=== PATIENT | female | born 1955 | race Caucasian/White ===

== ENCOUNTER 2023-01-29 08:30 | Day surgery (SDC) | payer MEDICARE, SELFPAY ==
[2023-01-27 11:16] VITALS: BMI 25.6
--- NOTE | 2023-01-28 08:25 | HO.ANESPROP2 ---
Documented by User: Noa Arreola NP 01/28/23 08:25 HPI - Anesthesia Eval Consult details Narrative: 68yo F for Colonoscopy PMFSH Active Problems Active Problems: All Active Problems (Updated 12/11/21 @ 13:17 by Kishor Sousa MD) Annual physical exam (Acute) Hypercholesterolemia (Acute) Past Medical History Medical History COVID-19 virus infection Shingles Vitiligo Hypercholesterolemia Family History Family History Father Lung cancer Surgical History Surgical History (Updated 01/29/23 @ 09:36 by Mariposa Montero MD) History of total abdominal hysterectomy History of appendectomy H/O elbow surgery H/O wrist surgery Social History Social History Housing: House Alcohol intake: current Alcohol intake frequency: a few times a month Patient Tobacco Use Status: Never used Tobacco e-Cigarette/Vaping Use: Never Used Second Hand Smoke Exposure: No Use of substances other than those prescribed or required for medical reasons: No Are you DNR?: No Advance Directives: No Advance Directives Information Provided: Yes Recently lost weight without trying: No How much weight loss: 2-13 pounds Eating poorly because of decreased appetite: No Nutrition screen score: 1 Nutrition Risks: No Nutritional Risk Current occupational status: retired Cognitive needs: No Hearing needs: No Vision needs: Yes Meds Allergies Allergy/AdvReac Type Severity Reaction Status Date / Time No Known Allergies Allergy Verified 12/11/21 12:59 Home Medications Medication Instructions Recorded Confirmed Last Taken Type cholecalciferol (vitamin D3) 25 25 mcg PO DAILY 12/11/21 12/11/21 Unknown History mcg (1,000 unit) capsule Exam Exam Date and Time: January 28, 2023 0825 Height,Weight and Vital Signs: Height 5 ft 4.5 in Weight 68.765 kg Assessment and Plan Assessment Anesthesia Assessment: Chart Reviewed Documented by User: Mariposa Montero MD 01/29/23 09:38 PMFSH Active Problems Active Problems: All Active Problems (Updated 01/29/23 @ 09:30 by Mariposa Montero MD) Annual physical exam (Acute) Hypercholesterolemia (Acute)- No medication Vit D3 only in the winter 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 Limited extension Past Medical History Medical History COVID-19 virus infection Shingles Vitiligo Hypercholesterolemia Family History Family History Father Lung cancer Family history of problems with anesthesia: No Surgical History Surgical History (Updated 01/29/23 @ 09:36 by Mariposa Montero MD) History of total abdominal hysterectomy History of appendectomy H/O elbow surgery H/O wrist surgery History of Problems with Anesthesia: No Social History Social History Housing: House Alcohol intake: current Alcohol intake frequency: a few times a month Patient Tobacco Use Status: Never used Tobacco e-Cigarette/Vaping Use: Never Used Second Hand Smoke Exposure: No Use of substances other than those prescribed or required for medical reasons: No Are you DNR?: No Advance Directives: No Advance Directives Information Provided: Yes Recently lost weight without trying: No How much weight loss: 2-13 pounds Eating poorly because of decreased appetite: No Nutrition screen score: 1 Nutrition Risks: No Nutritional Risk Current occupational status: retired Cognitive needs: No Hearing needs: No Vision needs: Yes Meds Allergies Allergy/AdvReac Type Severity Reaction Status Date / Time No Known Allergies Allergy Verified 12/11/21 12:59 Home Medications Medication Instructions Recorded Confirmed Last Taken Type cholecalciferol (vitamin D3) 25 25 mcg PO DAILY 12/11/21 12/11/21 Unknown History mcg (1,000 unit) capsule Exam Height,Weight and Vital Signs: Height 5 ft 4.5 in Weight 68.765 kg Vital Signs Temp Pulse Resp BP Pulse Ox O2 Del Method 01/29/23 09:06 98.1 F 66 20 119/65 99 Room Air Airway Mallampati Class: II TM Dist: >3cm Neck ROM: Full Loose/Missing/Broken Teeth: No (Denies broken, loose, missing teeth) Heart: RRR Lungs: CTAB Assessment and Plan Assessment Anesthesia Assessment: Anesthesia Plan Discussed Final Anesthetic Review Family History of Problems with Anesthesia: No History of Problems with Anesthesia: No NPO: Yes ASA Class: II Final Preanesthetic Review: No Changes in Pt Med Stat, Meds/Allgs Chart Reviewed, Consent Obtained/Reviewed and Anes Risks/Benef Reviewed Patient Risk: Low Procedure Risk: Low Assessment/Block/Sedation in SS: Assess/Block/Sedation-SS Anesthetic Plan Anesthetic Plan: MAC: Disposition: Standard PACU
[2023-01-29 08:50] VITALS: BMI 26.2
[2023-01-29 08:53] VITALS: BMI 26.2
[2023-01-29 09:06] VITALS: BP 119/65; PULSE 66; RESP 20; TEMP 36.7; O2SAT 99
[2023-01-29] MEDS: Lactated Ringers 1,000 ML 100 ML IVCONT (09:24)
[2023-01-29 10:57] VITALS: BP 74/37; PULSE 83; RESP 16; TEMP 36.7; O2SAT 96
--- NOTE | 2023-01-29 10:58 | P.BOP_ITS ---
Brief Operative Note Date of Service: 01/29/23 Pre-op diagnosis: Screening Post-op diagnosis: other (Diverticulosis) Procedure: Colonoscopy to the cecum Surgeon: Rudi Mills MD Anesthesia: MAC Was an Senior Counsel Commercial used for this Procedure?: No Estimated blood loss (mL): 0 Pathology: none sent Condition: stable Disposition: PACU
[2023-01-29 11:02] VITALS: BP 83/41; PULSE 68; RESP 16; O2SAT 97
[2023-01-29 11:07] VITALS: BP 101/50; PULSE 72; RESP 16; O2SAT 99
[2023-01-29 11:17] VITALS: BP 106/47; PULSE 68; RESP 16; O2SAT 99
[2023-01-29 11:22] VITALS: BP 113/74; PULSE 85; RESP 16; TEMP 36.2; O2SAT 100
--- NOTE | 2023-01-29 11:59 | OP_ITS ---
DATE OF SERVICE: 01/29/2023 SURGEON: Rudi Mills MD INDICATIONS: The patient presents for evaluation of colorectal cancer screening. Full consent has been obtained from her for this, including risks of bleeding and perforation. PREOPERATIVE DIAGNOSIS: Colorectal cancer screening. POSTOPERATIVE DIAGNOSIS: Colorectal cancer screening, sigmoid diverticulosis, and internal hemorrhoids PROCEDURE PERFORMED: Colonoscopy to the cecum. ESTIMATED BLOOD LOSS: COMPLICATIONS: ANESTHESIA: Monitored anesthesia care. ASSISTANTS: SPECIMENS: DESCRIPTION OF PROCEDURE: The patient was placed in the left lateral decubitus position. The digital rectal exam revealed no abnormalities. The Olympus video pediatric colonoscope was entered into the rectum and advanced to the cecum with the assistance of abdominal pressure. Once in the cecum, I did identify normal-appearing cecal pouch with appendiceal orifice and a normal-appearing ileocecal valve. There was transillumination of the light deep in the right lower quadrant. The entire cecum and ileocecal valve appeared normal. The scope was slowly withdrawn assessing all mucosal surfaces carefully. Preparation was excellent. I did not visualize any sign of polyps, colitis, nor angiodysplasia. There was a mild amount of sigmoid diverticulosis. In the rectum, scope was retroflexed visualizing internal hemorrhoids, but no other pathology. The rectal mucosa appeared normal. The scope was straightened and withdrawn from the patient. She tolerated the procedure well and was returned to the recovery area in stable condition. IMPRESSION: 1. Sigmoid diverticulosis. 2. Internal hemorrhoids. PLAN: Given her negative exam, I would recommend a followup coloscopy in 10 years for further screening. She will otherwise see me on a p.r.n. basis. MD MAXIM Padgett/TG / [phone]
== END 2023-01-29 11:58 | disposition home or self-care (01) ==
PROVIDERS: PCP Internal Medicine; Visit Provider Internal Medicine
PROC: 0DJD8ZZ Inspection of Lower Intestinal Tract, Via Natural or Artificial Opening Endoscopic (ICD-10-PCS; CPT 45378; principal; 2023-01-29 09:30)
DX: Z12.11 Encounter for screening for malignant neoplasm of colon (principal); K57.30 Diverticulosis of large intestine without perforation or abscess without bleeding; K64.8 Other hemorrhoids; E78.00 Pure hypercholesterolemia, unspecified; Z85.830 Personal history of malignant neoplasm of bone
CPT/HCPCS: G0121; J2250

== ENCOUNTER 2024-03-05 13:48 | Outpatient (AMB) | payer MEDICARE, SELFPAY ==
--- NOTE | 2024-03-05 13:53 | A.OFFPC_ITS ---
Intake Visit Reasons: AWV Allergies No Known Allergies Allergy (Verified 12/11/21 12:59) Tobacco use date assessed: 12/11/21 [facility] Medical History COVID-19 virus infection Shingles Vitiligo Hypercholesterolemia Surgical History History of total abdominal hysterectomy History of appendectomy H/O elbow surgery H/O wrist surgery Family History (Updated 03/05/24 @ 13:53 by LISA Shukla) Father Lung cancer Social History Housing: House Alcohol intake: current Alcohol intake frequency: a few times a month Patient Tobacco Use Status: Never used Tobacco e-Cigarette/Vaping Use: Never Used Second Hand Smoke Exposure: No Current occupational status: retired Cognitive needs: No Hearing needs: No Vision needs: Yes Questionnaire PHQ-9 Over the last 2 weeks, how often have you been bothered by any of the following problems? 1. Little interest or pleasure in doing things: not at all 2. Feeling down, depressed, or hopeless: not at all 3. Trouble falling or staying asleep, or sleeping too much: not at all 4. Feeling tired or having little energy: not at all 5. Poor appetite or overeating: not at all 6. Feeling bad about yourself - or that you are a failure or have let yourself or your family down: not at all 7. Trouble concentrating on things, such as reading the newspaper or watching television: not at all 8. Moving or speaking so slowly that other people could have noticed. Or the opposite - being so fidgety or restless that you have been moving around a lot more than usual: not at all 9. Thoughts that you would be better off or of hurting yourself in some way: not at all Total score: 0 Depression Screening Interpretation: Negative Depression Screening Done: Yes Source: Developed by Drs. Rudi Roca, Sandie Leigh, Calixto Michaud and colleagues, with an educational jennifer from [email or web address]. Thrive Questionnaire Date Thrive assessed: 03/05/24 I am a: Patient What is your living situation today?: I have a steady place to live Within the past 12 months, did the food you bought not last and you didn't have the money to get more?: Never true Within the past 12 months, did you worry whether your food would run out before you got money to buy more?: Never true Do you have trouble paying for medicines?: No Do you have trouble getting transportation to medical appointments?: No Do you have trouble paying your heating and electricity bill?: No Do you have trouble taking care of your child, family member or friend?: No Do you have trouble with day-to-day activities such as bathing, preparing meals, shopping, managing finances, etc.?: No Are you currently unemployed and looking for a job?: No Are you interested in more education?: No Currently or been in a relationship where the following occur: No concerns reported THRIVE Score: 0 AUDIT C Alcohol Use Questionnaire (AUDIT-C) 1. How often do you have a drink containing alcohol?: 2-3 times a week 2. How many drinks containing alcohol do you have on a typical day when you are drinking?: 1 or 2 Total Score: 3 JEFF-7 AMB Questionnaire JEFF-7 Date JEFF - 7 assessed: 03/05/24 Feeling nervous, anxious, or on edge: 0 = Not at all Not being able to stop or control worryin = Not at all Worrying too much about different things: 0 = Not at all Trouble relaxin = Not at all Being so restless that it is hard to sit still: 0 = Not at all Becoming easily annoyed or irritable: 0 = Not at all Feeling afraid as if something awful might happen: 0 = Not at all Total JEFF-7 score (0-4 normal; 5-9 mild; 10-14 moderate; 15-21 severe): 0 Source: Developed by Drs. Rudi Roca, Sandie Leigh, Calixto Michaud and colleagues, with an educational jennifer from [email or web address]. Physical exam (Primary Care) Tobacco/Smoking Status: Tobacco use Status Tobacco use date assessed 12/11/21 12/11/21 13:00 Patient Tobacco Use Status Never used Tobacco 01/29/23 10:58 e-Cigarette/Vaping Use Never Used 12/11/21 13:19 Depression Screening Interpretation: Negative Thrive Assessment: Date of Thrive Assessment Date Thrive assessed 12/11/21 12/11/21 13:00 Currently or been in a relationship where the following occur: No concerns reported Coding
--- NOTE | 2024-03-05 13:54 | A.OFFVIS_ITS ---
Intake Vital Signs 03/05/24 13:57 Height 5 ft 3.5 in Weight 147 lb 8 oz BMI 25.7 BP 120/78 Blood Pressure Location Lt brachial Position Sitting Pulse 76 Pulse Source Pulse Oximeter Pulse Oximetry (%) 97 Oxygen Delivery Method Room Air Intake Visit Reasons: AWV Intake Note: Patient is here for an Annual Wellness Visit. Valve Tester Required: No Coremaker Floor: Coremaker Floor offered & declined Accompanied by: Self / Same As Patient Allergies No Known Allergies Allergy (Verified 03/05/24 13:57) Medication List - Last Reconciled 03/05/24 by Kishor Sousa MD estradiol 1 patch topical QWEEK HPI AWV HPI Details infection on the R elbow - problem with allograft and will do suregery Dr. Meehan in [place]- debridement The patient is a 69-year-old female presenting with a follow-up for an infected elbow allograft. The original allograft surgery occurred in 1994. The current infection began in March, with noticeable symptoms persisting since August. The infection has been evaluated by Dr. Crabtree in [place] and the patient's original medical team in [place], including Dr. Meehan at [facility], who is scheduled to perform surgical debridement in two weeks. The patient reports the infection is draining but denies systemic symptoms like fever or chills. No antibiotic treatment has been initiated explicitly due to concerns about efficacy given the nature of the infection within the allograft. The patient also has a history of sigmoid diverticulosis and internal hemorrhoids identified during a colonoscopy, last performed in January,. There is also a noted history of hypercholesterolemia managed to date. - Colonoscopy last performed February 17; discussion of repeat needed. - Last mammogram conducted last week. - Bone density last conducted in 2015; r epeat discussed. - Vision checked in November with no is sues reported. - Up-to-date on flu vaccinations; consid eration of pneumonia vaccine noted. - Shingles vaccination advised due to cl bone shinlópez but not yet administered. - Alcohol consumption: two drinks weekly , typically in social settings. - Denies cigarette smoking or recreation al drug use. - Previously gave vaginally. - Engages in physical activities as tole rated. - General: Denies fever, dizziness, naus ea, vomiting, or unexplained weight changes. - Cardiovascular: Denies chest pain or s hortness of breath. - Gastrointestinal: Reports regular jere l movements. - Genitourinary: Denies urinary issues, occasionally wakes at night to urinate. - Neurological: Denies dizziness, syncop e, or new neurological symptoms. - Musculoskeletal: Denies generalized myrna int pain or swelling. - Labs: Patient not anemic, platelet cou nt adequate, no significant white blood cell elevation. Renal function and serum glucose levels within normal limits. Slight elevation in liver enzymes likely from a non-specific cause noted for monitoring. [facility] Medical History (Updated 03/05/24 @ 14:06 by Kishor Sousa MD) COVID-19 virus infection Shingles Vitiligo Hypercholesterolemia Surgical History History of total abdominal hysterectomy History of appendectomy H/O elbow surgery H/O wrist surgery Family History (Updated 03/05/24 @ 13:53 by LISA Shukla) Father Lung cancer Social History (Updated 03/05/24 @ 14:16 by Kishor Sousa MD) Housing: House Alcohol intake: current Alcohol intake frequency: a few times a week Comment: 2 drinks a week Patient Tobacco Use Status: Never used Tobacco e-Cigarette/Vaping Use: Never Used Second Hand Smoke Exposure: No Current occupational status: retired Cognitive needs: No Hearing needs: No Vision needs: Yes Questionnaire Medicare Wellness Checkup [age] 65-71 What gender do you identify with?: female During the past 4 weeks, how much have you been bothered by emotional problems such as feeling anxious, depressed, irritable, sad or downhearted, and blue?: slightly During the past 4 weeks, has your physical & emotional health limited your social activities with family, friends, neighbors, or groups?: slightly During the past 4 weeks, how much bodily pain have you generally had?: mild pain During the past 4 weeks, was someone available to help you if you needed & wanted help?: yes, as much as I wanted During the past 4 weeks, what was the hardest physical activity you could do for at least 2 minutes?: moderate Can you get to places out of walking distance without help? (For eg., can you travel alone on buses, taxis or drive your car?): Yes Can you go shopping for groceries or clothes without someone's help?: Yes Can you prepare your own meals?: Yes Can you do your housework without help?: Yes Because of any health problems, do you need the help of another person with your personal care needs such as eating, bathing, dressing or getting around the house?: No Can you handle your own money without help?: Yes During the past 4 weeks, how would you rate your health in general?: good During the past 4 weeks how have things been going for you?: good & bad parts about equal Are you having difficulties driving your car?: no Do you always fasten your seat belt when you are in a car?: yes, usually During past 4 weeks, have you been bothered by the following: never: Falling or dizzy when standing up, Sexual problems?, Trouble eating well?, Teeth or denture problems?, Problems using the telephone? and Tiredness or fatigue? Have you fallen 2 or more times in the past year?: No Are you afraid of falling?: No Are you a smoker?: no During the past 4 weeks, how many drinks of wine, beer, or other alcoholic beverages did you have?: 2-5 drinks per week Do you exercise for about 20 minutes 3 or more times a week?: yes, all the time Have you been given information to help with the following?: no: Hazards in your house that might hurt you? and no: Keeping track of your medications? How often do you have trouble taking medicines the way you have been told to take them?: I always take medicine as prescribed How confident are you that you can control & manage most of your health problems?: very confident What is your race?: White PHQ-9 Over the last 2 weeks, how often have you been bothered by any of the following problems? 1. Little interest or pleasure in doing things: not at all 2. Feeling down, depressed, or hopeless: not at all 3. Trouble falling or staying asleep, or sleeping too much: not at all 4. Feeling tired or having little energy: not at all 5. Poor appetite or overeating: not at all 6. Feeling bad about yourself - or that you are a failure or have let yourself or your family down: not at all 7. Trouble concentrating on things, such as reading the newspaper or watching television: not at all 8. Moving or speaking so slowly that other people could have noticed. Or the opposite - being so fidgety or restless that you have been moving around a lot more than usual: not at all 9. Thoughts that you would be better off or of hurting yourself in some way: not at all Total score: 0 Depression Screening Interpretation: Negative Depression Screening Done: Yes Source: Developed by Drs. Rudi Roca, Sandie Leigh, Calixto Michaud and colleagues, with an educational jennifer from [employer] Thrive Questionnaire Date Thrive assessed: 03/05/24 I am a: Patient What is your living situation today?: I have a steady place to live Within the past 12 months, did the food you bought not last and you didn't have the money to get more?: Never true Within the past 12 months, did you worry whether your food would run out before you got money to buy more?: Never true Do you have trouble paying for medicines?: No Do you have trouble getting transportation to medical appointments?: No Do you have trouble paying your heating and electricity bill?: No Do you have trouble taking care of your child, family member or friend?: No Do you have trouble with day-to-day activities such as bathing, preparing meals, shopping, managing finances, etc.?: No Are you currently unemployed and looking for a job?: No Are you interested in more education?: No Please select the resources that you would like help with: None Currently or been in a relationship where the following occur: No concerns reported THRIVE Score: 0 JEFF-7 AMB Questionnaire JEFF-7 Date JEFF - 7 assessed: 03/05/24 Feeling nervous, anxious, or on edge: 0 = Not at all Not being able to stop or control worryin = Not at all Worrying too much about different things: 0 = Not at all Trouble relaxin = Not at all Being so restless that it is hard to sit still: 0 = Not at all Becoming easily annoyed or irritable: 0 = Not at all Feeling afraid as if something awful might happen: 0 = Not at all Total JEFF-7 score (0-4 normal; 5-9 mild; 10-14 moderate; 15-21 severe): 0 Source: Developed by Sandie Aguayo.W. Reese, Calixto Michaud and colleagues, with an educational jennifer from [employer] AUDIT C Alcohol Use Questionnaire (AUDIT-C) 1. How often do you have a drink containing alcohol?: 2-4 times a month 2. How many drinks containing alcohol do you have on a typical day when you are drinking?: 1 or 2 Total Score: 2 Review of Systems Const Denies poor appetite and Denies weakness Eyes Denies no additional complaints ENT Reports Normal hearing present, Denies dizziness, Denies nasal congestion, Denies tinnitus and Denies sore throat Card Denies chest pain, Denies syncope, Denies rapid heart rate and Denies dyspnea Resp Denies cough and Denies dyspnea GI Denies change in stool character, Reports constipation, Denies diarrhea, Denies nausea and Denies vomiting Denies urinary frequency, Denies difficulty voiding and Denies dysuria Neuro Reports Normal hearing present, Denies confusion, Denies dizziness, Denies syncope and Denies weakness Psych Denies confusion Physical Exam Vital Signs: Last Vital Signs Pulse 76 03/05/24 13:57 BP 120/78 03/05/24 13:57 Pulse Ox 97 03/05/24 13:57 Oxygen Delivery Method Room Air 03/05/24 13:57 BMI result Body Mass Index 25.7 Const General: No confusion Orientation/consciousness: No confusion HEENT Head: Yes normocephalic Ears: external ears normal and TM's normal bilaterally Face and sinus: Yes normal facial exam Mouth: moist mucous membranes Throat: Yes tonsils normal Eyes Conjunctivae: conjunctivae normal Pupils: Equal, round and reactive pupils present and Pupil accommodation reflex normal Direct Ophthalmoscopy: normal light reflex Neck Neck: No lymphadenopathy Thyroid: Thyroid normal Chest Chest palpation & inspection: normal inspection of the chest Resp Effort & Inspection: normal respiratory effort and no audible wheezes Auscultation: clear to auscultation bilaterally, no crackles, no wheezes and lung sounds not diminished Cardio Rate: regular rate Rhythm: regular rhythm Peripheral pulses: radial pulses present and dorsalis pedis present GI Palpation (GI): no masses Auscultation: normal bowel sounds and normoactive bowel sounds Rectal Exam - Female: deferred Skin General skin exam: no rashes or lesions noted Rashes: no rashes Neuro General: No confusion Cranial nerves: Yes Equal, round and reactive pupils present and Yes Normal hearing present Cognition (Neuro): normal cognition Gait exam (Neuro): Normal gait present Motor exam (neuro): 5/5 motor strength present throughout Deep tendon reflexes (DTR's): Right brachioradialis reflex intensity grade: 2+, Left brachioradialis reflex intensity grade: 2+, Right patellar reflex intensity grade: 2+ and Left patellar reflex intensity grade: 2+ Extrem Other: R elbow erythematous rash with a pustule that has not cleared seen nd [place] General: No edema Assessment & Plan Assessment & Plan (1) Annual physical exam: Code(s): Z00.00 - Encounter for general adult medical examination without abnormal findings Plan: Patient is advised to eat healthy, keep well hydrated, keep active and have adequate sleep. (2) Hypercholesterolemia: Code(s): E78.00 - Pure hypercholesterolemia, unspecified Plan: Avoid fried foods, chicken skin, eggs, butter margarine, pastries and meat. Be it pork or beef they have a lot of cholesterol (3) Colon cancer screening: Code(s): Z12.11 - Encounter for screening for malignant neoplasm of colon (4) Breast cancer screening by mammogram: Code(s): Z12.31 - Encounter for screening mammogram for malignant neoplasm of breast (5) Osteopenia: Code(s): M85.80 - Other specified disorders of bone density and structure, unspecified site Plan - Infected Allograft: Proceed with scheduled surgical debridement by Dr. Meehan. Delayed antibiotic consideration due to lack of vascular supply to the infected area until sufficient blood supply is established. - Hypercholesterolemia: Reassess lipid profile post-surgical recovery to consider further management. - Sigmoid Diverticulosis/Internal Hemorrhoids: Continue current management. Re- evaluation needed at the next colonoscopy. - Health Maintenance: Plan and schedule follow-up for mammogram and bone density study. Discuss receiving pneumococcal and shingles vaccines with primary care follow-up. I discussed the current infected allograft situation with the patient, explaining that surgical intervention is necessary due to the limitation of antibiotic penetration in non-vascularized tissue. We reviewed her cholesterol management to assess any needs for change post-recovery. I advised continuation with health maintenance schedule, underlining the importance of repeat mammogram, bone density scan, and vaccinations due. We also addressed lifestyle factors, and the patient has agreed to maintain her active lifestyle and moderate alcohol consumption post-surgery. - Follow through with the surgical plan for the infected allograft in two weeks. - Resume regular health maintenance screening post-surgery recovery. - Maintain adequate fluid intake and a balanced diet to support healing. - Report any new symptoms such as fever or increased pain immediately. - Consider receiving recommended vaccinations during follow-up care. Orders: Orders Complete Blood Count Auto Diff Today E78.00 - Pure hypercholesterolemia, unspecified Comprehensive Met. Panel Today E78.00 - Pure hypercholesterolemia, unspecified Free T4 (Free Thyroxine) Today E78.00 - Pure hypercholesterolemia, unspecified Thyroid Stimulating Hormone Today E78.00 - Pure hypercholesterolemia, unspecified Lipid Panel Today E78.00 - Pure hypercholesterolemia, unspecified Vitamin B12 and Folate Today E78.00 - Pure hypercholesterolemia, unspecified Vitamin D 25-OH Total Today E78.00 - Pure hypercholesterolemia, unspecified Quality Reporting (2019) Depression/Bipolar (159/160/161/177) PHQ-9: Total score: 0 Coding Level of Care Code Medicare Subsequent (G0439) Diagnoses Annual physical exam Z00.00 Hypercholesterolemia E78.00 Colon cancer screening Z12.11 Breast cancer screening by mammogram Z12.31 Osteopenia M85.80
[2024-03-05 13:57] VITALS: BP 120/78; PULSE 76; O2SAT 97; BMI 25.7
== END 2024-03-05 14:32 | disposition home or self-care (01) ==
PROVIDERS: PCP Internal Medicine; Visit Provider Internal Medicine
DX: Z00.00 Encounter for general adult medical examination without abnormal findings (principal); E78.00 Pure hypercholesterolemia, unspecified; Z12.11 Encounter for screening for malignant neoplasm of colon; Z12.31 Encounter for screening mammogram for malignant neoplasm of breast; M85.80 Other specified disorders of bone density and structure, unspecified site

== ENCOUNTER → 2024-03-05 13:48 | Outpatient (BNVA) | payer MEDICARE, SELFPAY | PROVIDERS: PCP Internal Medicine; Visit Provider Internal Medicine ==

== ENCOUNTER 2024-04-01 11:07 | Outpatient (REF) | payer MEDICARE, SELFPAY ==
--- OUTSIDE RECORDS SUMMARY | 2024-04-01 12:21 | XMS_ITS ---
Author Organization [facility] Address [address] [place] [address] Care Team Providers Care Custodian Manager Name Role Phone Kishor Sousa MD Primary Care Provider Rudi Ayoub [phone] ALLERGIES No Known Allergies REASON FOR VISIT Patient presents today for a recall colonoscopy MEDICATIONS Medication SIG (Take, Route, Fr equency, Duration) Notes Start Date End Date Status Estradiol 1 MG 1 tablet Orally Once a day for 30 day(s) Active SOCIAL HISTORY Tobacco Use: Social History Observation Description Date Details (start date - stop date) Never Smoker NA - NA Sex Assigned At : Social History Observation Description Sex Assigned At Unknown Tobacco Use/Smoking Question Answer Notes Patient is a nonsmoker Alcohol Screen Question Answer Notes Did you have a drink contain ing alcohol in the past year? Yes Points 3 Interpretation Positive How often did you have 6 or more drinks on one occasion in the past year? Never (0 point) How many drinks did you have on a typical day when you were drinking in the past year? 1 or 2 drinks (0 point) How often did you have a dri nk containing alcohol in the past year? 2 to 3 times a week (3 points) PROBLEMS Problem Type ICD Code Onset Dates Problem Status W/U Status Risk SNOMED Code Notes Problem Colon cancer screening (Z12.11) Active confirmed 737578954 VITAL SIGNS BMI 25.62 kg/m2 11/06/2022 Blood pressure systolic 000 mm Hg 11/07/19 23 Blood pressure diastolic 00 mm Hg 023 Height 64.5 in 11/06/2022 Temperature 97.7 degrees Fahrenheit 11/07/19 23 Weight 151.6 lbs 11/06/2022 Encounters Encounter Location Date Provider Diagnosis [facility] [address] [place] [address] 11/06/2022 Rudi Mills Colon cancer screening Z12.11 ASSESSMENTS Encounter Date Diagnosis Assessment Notes Treatment Notes Treatment Clinical Notes 11/06/2022 Colon cancer screening (ICD-10 - Z12.11) PLAN OF TREATMENT Future Test Test Name Order Date COLONOSCOPY 11/06/2022 Next Appt Details Follow Up: prn, Reason: Progress Notes * Examination Category Sub-Category Detail Notes General Examination GENERAL APPEARANCE: pleasant , well nourished, well developed, in no acute distress EYES: sclera non-icteric NECK/THYROID: no cervical lymphade nopathy, neck supple HEART: S1, S2 normal LUNGS: clear to auscultatio n bilaterally ABDOMEN: normal bowel sounds, no guarding or rigidity, no hepatosplenomegaly, no masses palpable, soft, nontender, nondistended. NEUROLOGIC: alert and oriented SKIN: nonjaundiced, no spi waqas angiomata. EXTREMITIES: no edema ORAL CAVITY: mucosa moist
--- OUTSIDE RECORDS SUMMARY | 2024-04-01 12:21 | XMS_ITS | Clinical Summary ---
Author Organization Unknown Care Team Providers Care Kiln Firer Name Role Phone PO INTERSTATE, LORENVER Unavailable Unavaila uday LENTZ RN, MARIXA Unavailable Unavailab yocasta WEST LPN, MARIANO Unavailable Unavail able Payers Payer Name Policy Type Policy Number Effective Date Expira tion Date MEDICARE.NGS.PDGM [id number] Problems Condition Name Condition Details Condition Category Status Onset Date Resolution Date Last Treatment Date Treating Clinician Comments SKIN GRAFT (ALLOGRAFT) (AUTOGRAFT) INFECTION Active 2023-03 00:00: 00 UNSPECIFIED OSTEOARTHRIT IS, UNSPECIFIED SITE Active 2023-03 00:00: 00 CLAUSTROPHOB IA Active 2023-03 00:00: 00 UNSPECIFIED VISUAL LOSS Active 2023-03 00:00: 00 Allergies, Adverse Reactions, Alerts Allergy Name Allergy Type Status Severity Reaction(s) Onset Date Inactive Date Treating Clinician Comments NO KNOWN ALLERGIES Propensity to adverse reactions Active 2023-03 10:22: 07 Vital Signs Vital Name Observation Time Observation Value Commen ts Temperature 2024-03-25 20:15:00.000 97.1 [degF] BMI (%) 2024-03-25 10:25:07.000 26 kg/m2 Height 2024-03-25 10:24:56.000 63 [in_us] Pulse 2024-03-25 20:15:00.000 106 /min Respirations 2024-03-25 20:15:00.000 18 /min Weight (lbs) 2024-03-25 10:25:07.000 147 [lb_av] Systolic Blood Pressure 2024-03-25 20:15:00.000 128 mm [Hg] Diastolic Blood Pressure 2024-03-25 20:15:00.000 70 mm [Hg] Plan of Treatment Planned Activity Planned Date Details Comments Future Scheduled Test RN TO OBSE RVE, ASSESS, EVALUATE, AND DEVELOP AN INDIVIDUALIZED PLAN OF CARE. AGENCY MAY ACCEPT ORDERS FROM CONSULTING PHYSICIANS RN TO OBSERVE AND ASSESS, INSURANCE CLAIMS PROCESSOR/CHEMICAL PROJECT ENGINEER TO OBSERVE FOR RISK FOR FALLS AND INSTRUCT IN FALL PREVENTION, HOME SAFETY, MEDICATION MANAGEMENT, INFECTION PREVENTION, AND NUTRITION MANAGEMENT. RN/INSURANCE CLAIMS PROCESSOR/CHEMICAL PROJECT ENGINEER NURSE MAY PERFORM O2 SATURATION LEVEL ON ADMISSION AND PRN FOR RESP STATUS CHANGES FOR RN TO ASSESS/INSURANCE CLAIMS PROCESSOR TO OBSERVE PATIENT, WITH NOTIFICATION TO THE PHYSICIAN IF SATURATION IS 90% IN THE ABSENCE OF MORE SPECIFIC PARAMETERS FROM THE PHYSICIAN. AGENCY MAY PERFORM A RESUMPTION OF CARE VISIT FOLLOWING ANY HOSPITAL ADMISSION. RN/INSURANCE CLAIMS PROCESSOR/CHEMICAL PROJECT ENGINEER TO MONITOR CO-MORBID CONDITIONS LISTED ON THE PLAN OF CARE AND ANY NEW CONDITIONS THAT PRESENT THEMSELVES DURING THIS EPISODE TO IDENTIFY CHANGES AND INTERVENE TO MINIMIZE COMPLICATIONS. [code = RN TO OBSERVE, ASSESS, EVALUATE, AND DEVELOP AN INDIVIDUALIZED PLAN OF CARE. AGENCY MAY ACCEPT ORDERS FROM CONSULTING PHYSICIANS RN TO OBSERVE AND ASSESS, INSURANCE CLAIMS PROCESSOR/CHEMICAL PROJECT ENGINEER TO OBSERVE FOR RISK FOR FALLS AND INSTRUCT IN FALL PREVENTION, HOME SAFETY, MEDICATION MANAGEMENT, INFECTION PREVENTION, AND NUTRITION MANAGEMENT. RN/INSURANCE CLAIMS PROCESSOR/CHEMICAL PROJECT ENGINEER NURSE MAY PERFORM O2 SATURATION LEVEL ON ADMISSION AND PRN FOR RESP STATUS CHANGES FOR RN TO ASSESS/INSURANCE CLAIMS PROCESSOR TO OBSERVE PATIENT, WITH NOTIFICATION TO THE PHYSICIAN IF SATURATION IS 90% IN THE ABSENCE OF MORE SPECIFIC PARAMETERS FROM THE PHYSICIAN. AGENCY MAY PERFORM A RESUMPTION OF CARE VISIT FOLLOWING ANY HOSPITAL ADMISSION. RN/INSURANCE CLAIMS PROCESSOR/CHEMICAL PROJECT ENGINEER TO MONITOR CO-MORBID CONDITIONS LISTED ON THE PLAN OF CARE AND ANY NEW CONDITIONS THAT PRESENT THEMSELVES DURING THIS EPISODE TO IDENTIFY CHANGES AND INTERVENE TO MINIMIZE COMPLICATIONS.] Future Scheduled Test MEDICATION MANAGEMENT; RN/INSURANCE CLAIMS PROCESSOR/CHEMICAL PROJECT ENGINEER TO REVIEW MEDICATIONS FOR INTERACTIONS, EFFECTIVENESS OF DRUG THERAPY, AND SIGNS/SYMPTOMS OF ADVERSE REACTIONS. MAY INSTRUCT AND REINFORCE MEDICATION TEACHING RELATED TO THE USE OF MEDICATIONS, DOSAGE, FREQUENCY, PURPOSE, SIDE EFFECTS, AND TO REPORT COMPLICATIONS. [code = MEDICATION MANAGEMENT; RN/INSURANCE CLAIMS PROCESSOR/CHEMICAL PROJECT ENGINEER TO REVIEW MEDICATIONS FOR INTERACTIONS, EFFECTIVENESS OF DRUG THERAPY, AND SIGNS/SYMPTOMS OF ADVERSE REACTIONS. MAY INSTRUCT AND REINFORCE MEDICATION TEACHING RELATED TO THE USE OF MEDICATIONS, DOSAGE, FREQUENCY, PURPOSE, SIDE EFFECTS, AND TO REPORT COMPLICATIONS.] Future Scheduled Test RN/INSURANCE CLAIMS PROCESSOR/CHEMICAL PROJECT ENGINEER TO PERFORM/TEACH INCISION CARE TO RIGHT ARM FLAP INCISIONS APPLY XEROFORM CHANGE DRESSING EVERY DAYS PT AND SPOUSE ABLE TO DO LEFT THIGH INCISION OPEN TO AIR WITH GLUE CLOSURE [code = RN/INSURANCE CLAIMS PROCESSOR/CHEMICAL PROJECT ENGINEER TO PERFORM/TEACH INCISION CARE TO RIGHT ARM FLAP INCISIONS APPLY XEROFORM CHANGE DRESSING EVERY DAYS PT AND SPOUSE ABLE TO DO LEFT THIGH INCISION OPEN TO AIR WITH GLUE CLOSURE] Future Scheduled Test PAIN MANAG EMENT; RN TO ASSESS AND TEACH, CHEMICAL PROJECT ENGINEER/INSURANCE CLAIMS PROCESSOR TO OBSERVE AND TEACH AND PROVIDE EDUCATION ON PAIN MANAGEMENT TECHNIQUES. [code = PAIN MANAGEMENT; RN TO ASSESS AND TEACH, CHEMICAL PROJECT ENGINEER/INSURANCE CLAIMS PROCESSOR TO OBSERVE AND TEACH AND PROVIDE EDUCATION ON PAIN MANAGEMENT TECHNIQUES.] Future Scheduled Test FALL REDUC TION MANAGEMENT; RN TO ASSESS AND OBSERVE, INSURANCE CLAIMS PROCESSOR/CHEMICAL PROJECT ENGINEER TO OBSERVE FALL RISK FACTORS AND EDUCATE PATIENT/CAREGIVER ON STRATEGIES TO MINIMIZE THE RISK OF FALLING. [code = FALL REDUCTION MANAGEMENT; RN TO ASSESS AND OBSERVE, INSURANCE CLAIMS PROCESSOR/CHEMICAL PROJECT ENGINEER TO OBSERVE FALL RISK FACTORS AND EDUCATE PATIENT/CAREGIVER ON STRATEGIES TO MINIMIZE THE RISK OF FALLING.] Goal Patient Goal - TO HEAL WITH COMPLICATIONS Goal Provider Goal - A PLAN OF CARE WILL BE ESTABLISHED THAT MEETS THE PATIENTS NEEDS. PATIENT WILL DEMONSTRATE OXYGEN SATURATION WITHIN NORMAL LIMITS OR PATIENTS OPTIMAL LEVEL ESTABLISHED BY THE PHYSICIAN THROUGHOUT CARE. CHANGES TO CO-MORBID CONDITIONS AND ANY NEW CONDITIONS WILL BE IDENTIFIED AND REPORTED TO THE PHYSICIAN. Goal Provider Goal - PATIENT/CAREGIVER TO VERBALIZE, AND CONSISTENTLY DEMONSTRATE EFFECTIVE, SAFE MANAGEMENT OF MEDICATION INCLUDING KNOWLEDGE OF EFFECTIVENESS, POTENTIAL SIDE EFFECTS AND DRUG REACTIONS AND WHEN TO CONTACT THE APPROPRIATE CARE PROVIDER. PATIENT/CAREGIVER WILL BE ABLE TO VERBALIZE UNDERSTANDING OF MEDICATION REGIMEN AND ACCURATELY TAKE MEDICATIONS PRESCRIBED WITHOUT ADVERSE EFFECTS BY 05/23/24 Goal Provider Goal - PATIENT / CAREGIVER WILL VERBALIZE / DEMONSTRATE ABILITY TO PERFORM WOUND CARE. WOUND STATUS WILL IMPROVE EVIDENCED BY A DECREASE IN SIZE, DRAINAGE, ABSENCE OF INFECTION, AND DECREASED PAIN BY 05/23/24 Goal Provider Goal - PATIENT / CAREGIVER WILL VERBALIZE / DEMONSTRATE UNDERSTANDING OF PAIN CONTROL MEASURES BY 05/23/24 Goal Provider Goal - PATIENT/CAREGIVER WILL VERBALIZE/DEMONSTRATE UNDERSTANDING OF FALL RISK FACTORS AND IMPLEMENT STRATEGIES TO MINIMIZE FALL RISK. PATIENT/CAREGIVER WILL VERBALIZE/DEMONSTRATE AN ABILITY TO ADHERE TO FALL REDUCTION SELF-MANAGEMENT AND LIFE-STYLE CHANGES BY 05/23/24 Encounters Start Date/Time End Date/Time Encounter Type Admission Type Attending [facility] Care Department Encounter ID Discharge Date Discharge Status Discharge Condition Discharge Reason Percent Goals Met 2024-03-25 00:00:00 2024-05-23 00:00:00 Outpatient NEW ADMISSION TOR MARIXA [facility] [id number] 80.00
--- OUTSIDE RECORDS SUMMARY | 2024-04-01 12:21 | XMS_ITS | Clinical Summary ---
Author Organization Unknown Care Team Providers Care Chauffeur Name Role Phone PO INTERSTATE, LORENVER Unavailable Unavaila uday LENTZ RN, MARIXA Unavailable Unavailab yocasta WEST LPN, MARIANO Unavailable Unavail able Payers Payer Name Policy Type Policy Number Effective Date Expira tion Date MEDICARE.NGS.PDGM [id number] Problems Condition Name Condition Details Condition Category [...] CONSULTING PHYSICIANS RN TO OBSERVE AND ASSESS, ENVIRONMENTAL RESOURCE SPECIALIST/GRINDER SET UP OPERATOR TO OBSERVE FOR RISK FOR FALLS AND INSTRUCT IN FALL PREVENTION, HOME SAFETY, MEDICATION MANAGEMENT, INFECTION PREVENTION, AND NUTRITION MANAGEMENT. RN/ENVIRONMENTAL RESOURCE SPECIALIST/GRINDER SET UP OPERATOR NURSE MAY PERFORM O2 SATURATION LEVEL ON ADMISSION AND PRN FOR RESP STATUS CHANGES FOR RN TO ASSESS/ENVIRONMENTAL RESOURCE SPECIALIST TO OBSERVE PATIENT, WITH NOTIFICATION TO THE PHYSICIAN IF SATURATION IS 90% IN THE ABSENCE OF MORE SPECIFIC PARAMETERS FROM THE PHYSICIAN. AGENCY MAY PERFORM A RESUMPTION OF CARE VISIT FOLLOWING ANY HOSPITAL ADMISSION. RN/ENVIRONMENTAL RESOURCE SPECIALIST/GRINDER SET UP OPERATOR TO MONITOR CO-MORBID CONDITIONS LISTED ON THE PLAN OF CARE AND ANY NEW CONDITIONS THAT PRESENT THEMSELVES DURING THIS EPISODE TO IDENTIFY CHANGES AND INTERVENE TO MINIMIZE COMPLICATIONS. [code = RN TO OBSERVE, ASSESS, EVALUATE, AND DEVELOP AN INDIVIDUALIZED PLAN OF CARE. AGENCY MAY ACCEPT ORDERS FROM CONSULTING PHYSICIANS RN TO OBSERVE AND ASSESS, ENVIRONMENTAL RESOURCE SPECIALIST/GRINDER SET UP OPERATOR TO OBSERVE FOR RISK FOR FALLS AND INSTRUCT IN FALL PREVENTION, HOME SAFETY, MEDICATION MANAGEMENT, INFECTION PREVENTION, AND NUTRITION MANAGEMENT. RN/ENVIRONMENTAL RESOURCE SPECIALIST/GRINDER SET UP OPERATOR NURSE MAY PERFORM O2 SATURATION LEVEL ON ADMISSION AND PRN FOR RESP STATUS CHANGES FOR RN TO ASSESS/ENVIRONMENTAL RESOURCE SPECIALIST TO OBSERVE PATIENT, WITH NOTIFICATION TO THE PHYSICIAN IF SATURATION IS 90% IN THE ABSENCE OF MORE SPECIFIC PARAMETERS FROM THE PHYSICIAN. AGENCY MAY PERFORM A RESUMPTION OF CARE VISIT FOLLOWING ANY HOSPITAL ADMISSION. RN/ENVIRONMENTAL RESOURCE SPECIALIST/GRINDER SET UP OPERATOR TO MONITOR CO-MORBID CONDITIONS LISTED ON THE PLAN OF CARE AND ANY NEW CONDITIONS THAT PRESENT THEMSELVES DURING THIS EPISODE TO IDENTIFY CHANGES AND INTERVENE TO MINIMIZE COMPLICATIONS.] Future Scheduled Test MEDICATION MANAGEMENT; RN/ENVIRONMENTAL RESOURCE SPECIALIST/GRINDER SET UP OPERATOR TO REVIEW MEDICATIONS FOR INTERACTIONS, EFFECTIVENESS OF DRUG THERAPY, AND SIGNS/SYMPTOMS OF ADVERSE REACTIONS. MAY INSTRUCT AND REINFORCE MEDICATION TEACHING RELATED TO THE USE OF MEDICATIONS, DOSAGE, FREQUENCY, PURPOSE, SIDE EFFECTS, AND TO REPORT COMPLICATIONS. [code = MEDICATION MANAGEMENT; RN/ENVIRONMENTAL RESOURCE SPECIALIST/GRINDER SET UP OPERATOR TO REVIEW MEDICATIONS FOR INTERACTIONS, EFFECTIVENESS OF DRUG THERAPY, AND SIGNS/SYMPTOMS OF ADVERSE REACTIONS. MAY INSTRUCT AND REINFORCE MEDICATION TEACHING RELATED TO THE USE OF MEDICATIONS, DOSAGE, FREQUENCY, PURPOSE, SIDE EFFECTS, AND TO REPORT COMPLICATIONS.] Future Scheduled Test RN/ENVIRONMENTAL RESOURCE SPECIALIST/GRINDER SET UP OPERATOR TO PERFORM/TEACH INCISION CARE TO RIGHT ARM FLAP INCISIONS APPLY XEROFORM CHANGE DRESSING EVERY DAYS PT AND SPOUSE ABLE TO DO LEFT THIGH INCISION OPEN TO AIR WITH GLUE CLOSURE [code = RN/ENVIRONMENTAL RESOURCE SPECIALIST/GRINDER SET UP OPERATOR TO PERFORM/TEACH INCISION CARE TO RIGHT ARM FLAP INCISIONS APPLY XEROFORM CHANGE DRESSING EVERY DAYS PT AND SPOUSE ABLE TO DO LEFT THIGH INCISION OPEN TO AIR WITH GLUE CLOSURE] Future Scheduled Test PAIN MANAG EMENT; RN TO ASSESS AND TEACH, GRINDER SET UP OPERATOR/ENVIRONMENTAL RESOURCE SPECIALIST TO OBSERVE AND TEACH AND PROVIDE EDUCATION ON PAIN MANAGEMENT TECHNIQUES. [code = PAIN MANAGEMENT; RN TO ASSESS AND TEACH, GRINDER SET UP OPERATOR/ENVIRONMENTAL RESOURCE SPECIALIST TO OBSERVE AND TEACH AND PROVIDE EDUCATION ON PAIN MANAGEMENT TECHNIQUES.] Future Scheduled Test FALL REDUC TION MANAGEMENT; RN TO ASSESS AND OBSERVE, ENVIRONMENTAL RESOURCE SPECIALIST/GRINDER SET UP OPERATOR TO OBSERVE FALL RISK FACTORS AND EDUCATE PATIENT/CAREGIVER ON STRATEGIES TO MINIMIZE THE RISK OF FALLING. [code = FALL REDUCTION MANAGEMENT; RN TO ASSESS AND OBSERVE, ENVIRONMENTAL RESOURCE SPECIALIST/GRINDER SET UP OPERATOR TO OBSERVE FALL RISK FACTORS AND EDUCATE [...] End Date/Time Encounter Type Admission Type Attending [facility] Care Department Encounter ID Discharge Date Discharge Status Discharge Condition Discharge Reason Percent Goals Met 2024-03-25 00:00:00 2024-05-23 00:00:00 Outpatient NEW ADMISSION TOR MARIXA [facility] [id number] 80.00
--- OUTSIDE RECORDS SUMMARY | 2024-04-01 12:21 | XMS_ITS ---
Author Organization [facility] Address [address] [place] [address] Care Team Providers Care Drafter Patent Name Role Phone Kishor Sousa MD Primary Care Provider Rudi Ayoub [phone] REASON FOR VISIT screening PROBLEMS Problem Type ICD Code Onset Dates Problem Status W/U Status Risk SNOMED Code Notes Problem Diverticulosis of large intestine without perforation or abscess without bleeding (K57.30) Active confirmed Diverticul ar disease of colon (896973642) Encounters Encounter Location Date Provider Diagnosis [facility] [place] [address] [place], [place] [id number] 01/29/2023 Rudi Mills Encounter for scre ening colonoscopy Z12.11 ; Diverticulosis of large intestine without perforation or abscess without bleeding K57.30 and Other hemorrhoids K64.8 ASSESSMENTS Encounter Date Diagnosis Assessment Notes Treatment Notes Treatment Clinical Notes 01/29/2023 Encounter for screening colonoscopy (ICD-10 - Z12.11) 01/29/2023 Diverticulosis of large intestine without perforation or abscess without bleeding (ICD-10 - K57.30) 01/29/2023 Other hemorrhoids (ICD-10 - K64.8) PLAN OF TREATMENT No Information
--- OUTSIDE RECORDS SUMMARY | 2024-04-01 12:21 | XMS_ITS | Patient Health Record ---
Author Organization [facility] Address [address] [place] [address] Care Team Providers Care Homicide Squad Lieutenant Name Role Phone Kishor Sousa MD Primary Care Provider Rudi Ayoub [phone] ALLERGIES No Known Allergies REASON FOR REFERRAL No Information MEDICATIONS Medication SIG (Take, Route, Fr equency, Duration) Notes Start Date End Date Status Estradiol 1 MG 1 tablet Orally Once a day for 30 day(s) Active IMMUNIZATIONS Vaccine Route Administration Date Status Comme nts Influenza Unknown 02/19/2022 Administered SOCIAL HISTORY Sex Assigned At : Social History Observation Description Sex Assigned At Unknown PROBLEMS Problem Type ICD Code Onset Dates Problem Status W/U Status Risk SNOMED Code Notes Problem Colon cancer screening (Z12.11) Active confirmed 371830978 Problem Diverticulosis of large intestine without perforation or abscess without bleeding (K57.30) Active confirmed Diverticul ar disease of colon (661993904) PLAN OF TREATMENT Future Test Test Name Order Date COLONOSCOPY 03/10/2012 COLONOSCOPY 11/06/2022 Insurance Providers Payer Name Payer Address Payer Phone Subscriber Number Group Number Insured Name Patient Relationship to Insured Coverage Start Date Coverage End Date MEDICARE OF [place] [address] [place] [address] [phone] [id number] ZO MCKINNON Self - patient is the insured [employer] ATT[employer] CLAIMS [address] [place] [phone] [id number] ZO MCKINNON Self - patient is the insured MEDICAL (GENERAL) HISTORY Medical History History ICD Code 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
[2024-04-01 12:31] LABS: Alanine Aminotransferase 24 U/L (0-31); Albumin Level 3.8 g/dL (3.5-5.0); Alkaline Phosphatase 77 U/L (39-117); Aspartate Amino Transferase 19 U/L (5-31); Bilirubin Direct 0.2 mg/dL (0.0-0.5); Bilirubin Total 0.4 mg/dL (0.0-1.0); Blood Urea Nitrogen 8 mg/dL (9-16); Estimated Glomerular Filt Rate > 60
== END 2024-04-01 11:08 | disposition home or self-care (01) ==
LOC: HO.LAB 11:07
PROVIDERS: PCP Internal Medicine; Visit Provider Student in an Organized Health Care Education/Training Program
DX: M86.9 Osteomyelitis, unspecified (principal)
CPT/HCPCS: 36415; 80076; 82565; 84520

== ENCOUNTER 2024-04-30 11:54 | Outpatient (REF) | payer MEDICARE, SELFPAY ==
[2024-04-30 13:23] LABS: Alanine Aminotransferase 12 U/L (0-31); Alkaline Phosphatase 66 U/L (39-117); Aspartate Amino Transferase 18 U/L (5-31); Bilirubin Direct 0.1 mg/dL (0.0-0.5); Bilirubin Total 0.4 mg/dL (0.0-1.0); Blood Urea Nitrogen 8 mg/dL (9-16); Total Protein 7.4 g/dL (6.5-8.0)
[2024-05-03 14:40] LABS: Estimated Glomerular Filt Rate > 60
== END 2024-04-30 11:55 | disposition home or self-care (01) ==
LOC: HO.LAB 11:54
PROVIDERS: Visit Provider Student in an Organized Health Care Education/Training Program
DX: M86.9 Osteomyelitis, unspecified (principal)
CPT/HCPCS: 36415; 80076; 82565; 84520

== ENCOUNTER 2024-05-07 11:09 | Outpatient (REF) | payer MEDICARE, SELFPAY ==
--- OUTSIDE RECORDS SUMMARY | 2024-05-07 12:15 | XMS_ITS ---
Author Organization [facility] Address [address] [place] [address] Care Team Providers Care Tape Controlled Machine Stitcher Name Role Phone Kishor Sousa MD Primary Care Provider Rudi Ayoub [phone] REASON FOR VISIT screening PROBLEMS Problem Type ICD Code Onset Dates Problem Status W/U Status Risk SNOMED Code Notes Problem Diverticulosis of large intestine without perforation or abscess without bleeding (K57.30) Active confirmed Diverticul ar disease of colon (728198859) Encounters Encounter Location Date Provider Diagnosis [facility] [place] Outpatient [address], [place] [phone] 01/29/2023 Rudi Mills Encounter for scre ening [...]
--- OUTSIDE RECORDS SUMMARY | 2024-05-07 12:16 | XMS_ITS | Clinical Summary ---
Author Organization Unknown Care Team Providers Care Recorder Gravity Prospecting Name Role Phone PO INTERSTATE, GENO Unavailable Unavaila uday LENTZ RN, MARIXA Unavailable Unavailab yocasta WEST LPN, MARIANO Unavailable Unavail able Payers Payer Name Policy Type Policy Number Effective Date Expira tion Date MEDICARE.NGS.PDGM [id number] Problems Condition Name Condition Details Condition Category Status Onset Date Resolution Date Last Treatment Date Treating Clinician Comments SKIN GRAFT (ALLOGRAFT) (AUTOGRAFT) INFECTION Active 2023-03 00:00: 00 STREPTOCOCCU S, GROUP B, CAUSING DISEASES CLASSD ELSWHR Active 2023-03 00:00: 00 UNSPECIFIED OSTEOARTHRIT IS, UNSPECIFIED SITE Active 2023-03 00:00: 00 CLAUSTROPHOB IA Active 2023-03 00:00: 00 UNSPECIFIED VISUAL LOSS Active 2023-03 00:00: 00 Allergies, Adverse Reactions, Alerts Allergy Name Allergy Type Status Severity Reaction(s) Onset Date Inactive Date Treating Clinician Comments NO KNOWN ALLERGIES Propensity to adverse reactions Active 2023-03 10:22: 07 Medications Ordered Medication Name Filled Medication Name Start Date Stop Date Current Medication? Ordering Clinician Indication Dosage Frequency Signature (SIG) Comments Components estradiol 0.075 mg/24 hr weekly transdermal patch 2023-03 00:00: 00 Yes [id number] SUPPLEMENT 1 patch, transde rmal weekly WEEKLY 1 patch, transderma l weekly WEEKLY (route: transderma l) Med Classific ation: Endocrine aspirin 81 mg tablet,gen yed release 2023-03 00:00: 00 Yes [id number] PREVENT BLOOD CLOTS 4 tablet DAILY 4 tablet DAILY (route: oral) Med Classific ation: Hematolog ical Agents gabapentin 100 mg capsule 2023-03 00:00: 00 Yes [id number] PAIN 2 capsule 3 TIMES DAILY 2 capsule 3 TIMES DAILY (route: oral) Med Classific ation: Central Nervous System Agents ibuprofen 200 mg tablet 2023-03 00:00: 00 Yes [id number] PAIN 2 tablet 3 TIMES DAILY 2 tablet 3 TIMES DAILY (route: oral) Med Classific ation: Analgesic , Anti-infl ammatory or Antipyret ic moxifloxaci n 400 mg tablet 2023-03 00:00: 00 Yes [id number] INFECTION 1 tablet DAILY 1 tablet DAILY (route: oral) Med Classific ation: Anti-Infe ctive Agents rifampin 300 mg capsule 2023-03 00:00: 00 Yes [id number] INFECTION 2 capsule DAILY 2 capsule DAILY (route: oral) Med Classific ation: Anti-Infe ctive Agents Vital Signs Vital Name Observation Time Observation Value Commen ts Temperature 2024-04-09 09:30:00.000 95.8 [degF] Temperature 2024-04-01 10:20:00.000 97.6 [degF] Temperature 2024-03-25 20:15:00.000 97.1 [degF] BMI (%) 2024-03-25 10:25:07.000 26 kg/m2 Height 2024-03-25 10:24:56.000 63 [in_us] Pulse 2024-04-09 09:30:00.000 75 /min Pulse 2024-04-01 10:20:00.000 78 /min Pulse 2024-03-25 20:15:00.000 106 /min O2 Saturation (%) 2024-04-09 09:30:00.000 100 % Respirations 2024-04-09 09:30:00.000 16 /min Respirations 2024-04-01 10:20:00.000 18 /min Respirations 2024-03-25 20:15:00.000 18 /min Weight (lbs) 2024-03-25 10:25:07.000 147 [lb_av] Systolic Blood Pressure 2024-04-09 09:30:00.000 112 mm [Hg] Systolic Blood Pressure 2024-04-01 10:20:00.000 128 mm [Hg] Systolic Blood Pressure 2024-03-25 20:15:00.000 128 mm [Hg] Diastolic Blood Pressure 2024-04-09 09:30:00.000 60 mm [Hg] Diastolic Blood Pressure 2024-04-01 10:20:00.000 78 mm [Hg] Diastolic Blood Pressure 2024-03-25 20:15:00.000 70 mm [Hg] Plan of Treatment Planned Activity Planned Date Details Comments Future Scheduled Test RN TO OBSE RVE, ASSESS, EVALUATE, AND DEVELOP AN INDIVIDUALIZED PLAN OF CARE. AGENCY MAY ACCEPT ORDERS FROM CONSULTING PHYSICIANS RN TO OBSERVE AND ASSESS, SILK SCREEN PRINTER HELPER/COMPLIANCE NURSE TO OBSERVE FOR RISK FOR FALLS AND INSTRUCT IN FALL PREVENTION, HOME SAFETY, MEDICATION MANAGEMENT, INFECTION PREVENTION, AND NUTRITION MANAGEMENT. RN/SILK SCREEN PRINTER HELPER/COMPLIANCE NURSE NURSE MAY PERFORM O2 SATURATION LEVEL ON ADMISSION AND PRN FOR RESP STATUS CHANGES FOR RN TO ASSESS/SILK SCREEN PRINTER HELPER TO OBSERVE PATIENT, WITH NOTIFICATION TO THE PHYSICIAN IF SATURATION IS 90% IN THE ABSENCE OF MORE SPECIFIC PARAMETERS FROM THE PHYSICIAN. AGENCY MAY PERFORM A RESUMPTION OF CARE VISIT FOLLOWING ANY HOSPITAL ADMISSION. RN/SILK SCREEN PRINTER HELPER/COMPLIANCE NURSE TO MONITOR CO-MORBID CONDITIONS LISTED ON THE PLAN OF CARE AND ANY NEW CONDITIONS THAT PRESENT THEMSELVES DURING THIS EPISODE TO IDENTIFY CHANGES AND INTERVENE TO MINIMIZE COMPLICATIONS. [code = RN TO OBSERVE, ASSESS, EVALUATE, AND DEVELOP AN INDIVIDUALIZED PLAN OF CARE. AGENCY MAY ACCEPT ORDERS FROM CONSULTING PHYSICIANS RN TO OBSERVE AND ASSESS, SILK SCREEN PRINTER HELPER/COMPLIANCE NURSE TO OBSERVE FOR RISK FOR FALLS AND INSTRUCT IN FALL PREVENTION, HOME SAFETY, MEDICATION MANAGEMENT, INFECTION PREVENTION, AND NUTRITION MANAGEMENT. RN/SILK SCREEN PRINTER HELPER/COMPLIANCE NURSE NURSE MAY PERFORM O2 SATURATION LEVEL ON ADMISSION AND PRN FOR RESP STATUS CHANGES FOR RN TO ASSESS/SILK SCREEN PRINTER HELPER TO OBSERVE PATIENT, WITH NOTIFICATION TO THE PHYSICIAN IF SATURATION IS 90% IN THE ABSENCE OF MORE SPECIFIC PARAMETERS FROM THE PHYSICIAN. AGENCY MAY PERFORM A RESUMPTION OF CARE VISIT FOLLOWING ANY HOSPITAL ADMISSION. RN/SILK SCREEN PRINTER HELPER/COMPLIANCE NURSE TO MONITOR CO-MORBID CONDITIONS LISTED ON THE PLAN OF CARE AND ANY NEW CONDITIONS THAT PRESENT THEMSELVES DURING THIS EPISODE TO IDENTIFY CHANGES AND INTERVENE TO MINIMIZE COMPLICATIONS.] Future Scheduled Test MEDICATION MANAGEMENT; RN/SILK SCREEN PRINTER HELPER/COMPLIANCE NURSE TO REVIEW MEDICATIONS FOR INTERACTIONS, EFFECTIVENESS OF DRUG THERAPY, AND SIGNS/SYMPTOMS OF ADVERSE REACTIONS. MAY INSTRUCT AND REINFORCE MEDICATION TEACHING RELATED TO THE USE OF MEDICATIONS, DOSAGE, FREQUENCY, PURPOSE, SIDE EFFECTS, AND TO REPORT COMPLICATIONS. [code = MEDICATION MANAGEMENT; RN/SILK SCREEN PRINTER HELPER/COMPLIANCE NURSE TO REVIEW MEDICATIONS FOR INTERACTIONS, EFFECTIVENESS OF DRUG THERAPY, AND SIGNS/SYMPTOMS OF ADVERSE REACTIONS. MAY INSTRUCT AND REINFORCE MEDICATION TEACHING RELATED TO THE USE OF MEDICATIONS, DOSAGE, FREQUENCY, PURPOSE, SIDE EFFECTS, AND TO REPORT COMPLICATIONS.] Future Scheduled Test RN/SILK SCREEN PRINTER HELPER/COMPLIANCE NURSE TO PERFORM/TEACH INCISION CARE TO RIGHT ARM FLAP INCISIONS APPLY XEROFORM CHANGE DRESSING EVERY DAYS PT AND SPOUSE ABLE TO DO LEFT THIGH INCISION OPEN TO AIR WITH GLUE CLOSURE [code = RN/SILK SCREEN PRINTER HELPER/COMPLIANCE NURSE TO PERFORM/TEACH INCISION CARE TO RIGHT ARM FLAP INCISIONS APPLY XEROFORM CHANGE DRESSING EVERY DAYS PT AND SPOUSE ABLE TO DO LEFT THIGH INCISION OPEN TO AIR WITH GLUE CLOSURE] Future Scheduled Test PAIN MANAG EMENT; RN TO ASSESS AND TEACH, COMPLIANCE NURSE/SILK SCREEN PRINTER HELPER TO OBSERVE AND TEACH AND PROVIDE EDUCATION ON PAIN MANAGEMENT TECHNIQUES. [code = PAIN MANAGEMENT; RN TO ASSESS AND TEACH, COMPLIANCE NURSE/SILK SCREEN PRINTER HELPER TO OBSERVE AND TEACH AND PROVIDE EDUCATION ON PAIN MANAGEMENT TECHNIQUES.] Future Scheduled Test FALL REDUC TION MANAGEMENT; RN TO ASSESS AND OBSERVE, SILK SCREEN PRINTER HELPER/COMPLIANCE NURSE TO OBSERVE FALL RISK FACTORS AND EDUCATE PATIENT/CAREGIVER ON STRATEGIES TO MINIMIZE THE RISK OF FALLING. [code = FALL REDUCTION MANAGEMENT; RN TO ASSESS AND OBSERVE, SILK SCREEN PRINTER HELPER/COMPLIANCE NURSE TO OBSERVE FALL RISK FACTORS AND EDUCATE PATIENT/CAREGIVER ON STRATEGIES TO MINIMIZE THE RISK OF FALLING.] Goal 2024-04-09 Patient Goal - TO HEAL WITH COMPLICATIONS [...] REDUCTION SELF-MANAGEMENT AND LIFE-STYLE CHANGES BY 05/23/24 Reason for Visit INDEPENDENT IN THE HOME Encounters Start Date/Time End Date/Time Encounter Type Admission Type Attending [facility] Care Department Encounter ID Discharge Date Discharge Status Discharge Condition Discharge Reason Percent Goals Met 2024-03-25 00:00:00 2024-04-09 00:00:00 Outpatient NEW ADMISSION LENODOMINGUEZMARIXA PATTERSON [facility] [id number] 2024-04-09 00:00:00 DISCHARGE TO HOME OR SELF CARE INDEPENDEN T IN THE HOME HH ONLY - PER CLIENT REQUEST 83.33
--- OUTSIDE RECORDS SUMMARY | 2024-05-07 12:16 | XMS_ITS ---
Author Organization [facility] Address [address] [place] [address] Care Team Providers Care Dental Billing Specialist Name Role Phone Kishor Sousa MD Primary Care Provider Rudi Ayoub [phone] ALLERGIES No Known Allergies REASON FOR VISIT [...] Problem Colon cancer screening (Z12.11) Active confirmed [id number] VITAL SIGNS BMI 25.62 kg/m2 11/06/2022 Blood pressure systolic 000 mm Hg 11/07/19 23 Blood pressure diastolic 00 mm Hg 023 Height 64.5 in 11/06/2022 Temperature 97.7 degrees Fahrenheit 11/07/19 23 Weight 151.6 lbs 11/06/2022 Encounters Encounter Location Date Provider Diagnosis [facility] [address] [place] [address] 11/06/2022 Rudi Mills Colon cancer screening Z12.11 [...]
--- OUTSIDE RECORDS SUMMARY | 2024-05-07 12:16 | XMS_ITS | Clinical Summary ---
Author Organization Unknown Care Team Providers Care Instructor Warper Name Role Phone PO INTERSTATE, GENO Unavailable Unavaila uday LENTZ RN, MARIXA Unavailable Unavailab yocasta WEST LPN, MARIANO Unavailable Unavail able Payers Payer Name Policy Type Policy Number Effective Date Expira tion Date MEDICARE.NGS.PDGM [id number] Problems Condition Name Condition Details Condition Category [...] weekly transdermal patch 2023-03 00:00: 00 Yes [id number] SUPPLEMENT 1 patch, transde rmal weekly WEEKLY 1 patch, transderma l weekly WEEKLY (route: transderma l) Med Classific ation: Endocrine aspirin 81 mg tablet,gen yed release 2023-03 00:00: 00 Yes [id number] PREVENT BLOOD CLOTS 4 tablet DAILY 4 tablet DAILY (route: oral) Med Classific ation: Hematolog ical Agents gabapentin 100 mg capsule 2023-03 00:00: 00 Yes [id number] PAIN 2 capsule 3 TIMES DAILY 2 capsule 3 TIMES DAILY (route: oral) Med Classific ation: Central Nervous System Agents ibuprofen 200 mg tablet 2023-03 00:00: 00 Yes [id number] PAIN 2 tablet 3 TIMES DAILY 2 tablet 3 TIMES DAILY (route: oral) Med Classific ation: Analgesic , Anti-infl ammatory or Antipyret ic moxifloxaci n 400 mg tablet 2023-03 00:00: 00 Yes [id number] INFECTION 1 tablet DAILY 1 tablet DAILY (route: oral) Med Classific ation: Anti-Infe ctive Agents rifampin 300 mg capsule 2023-03 00:00: 00 Yes [id number] INFECTION 2 capsule DAILY 2 capsule DAILY [...] CONSULTING PHYSICIANS RN TO OBSERVE AND ASSESS, COAL BAGGER/PIPE STRIPPER TO OBSERVE FOR RISK FOR FALLS AND INSTRUCT IN FALL PREVENTION, HOME SAFETY, MEDICATION MANAGEMENT, INFECTION PREVENTION, AND NUTRITION MANAGEMENT. RN/COAL BAGGER/PIPE STRIPPER NURSE MAY PERFORM O2 SATURATION LEVEL ON ADMISSION AND PRN FOR RESP STATUS CHANGES FOR RN TO ASSESS/COAL BAGGER TO OBSERVE PATIENT, WITH NOTIFICATION TO THE PHYSICIAN IF SATURATION IS 90% IN THE ABSENCE OF MORE SPECIFIC PARAMETERS FROM THE PHYSICIAN. AGENCY MAY PERFORM A RESUMPTION OF CARE VISIT FOLLOWING ANY HOSPITAL ADMISSION. RN/COAL BAGGER/PIPE STRIPPER TO MONITOR CO-MORBID CONDITIONS LISTED ON THE PLAN OF CARE AND ANY NEW CONDITIONS THAT PRESENT THEMSELVES DURING THIS EPISODE TO IDENTIFY CHANGES AND INTERVENE TO MINIMIZE COMPLICATIONS. [code = RN TO OBSERVE, ASSESS, EVALUATE, AND DEVELOP AN INDIVIDUALIZED PLAN OF CARE. AGENCY MAY ACCEPT ORDERS FROM CONSULTING PHYSICIANS RN TO OBSERVE AND ASSESS, COAL BAGGER/PIPE STRIPPER TO OBSERVE FOR RISK FOR FALLS AND INSTRUCT IN FALL PREVENTION, HOME SAFETY, MEDICATION MANAGEMENT, INFECTION PREVENTION, AND NUTRITION MANAGEMENT. RN/COAL BAGGER/PIPE STRIPPER NURSE MAY PERFORM O2 SATURATION LEVEL ON ADMISSION AND PRN FOR RESP STATUS CHANGES FOR RN TO ASSESS/COAL BAGGER TO OBSERVE PATIENT, WITH NOTIFICATION TO THE PHYSICIAN IF SATURATION IS 90% IN THE ABSENCE OF MORE SPECIFIC PARAMETERS FROM THE PHYSICIAN. AGENCY MAY PERFORM A RESUMPTION OF CARE VISIT FOLLOWING ANY HOSPITAL ADMISSION. RN/COAL BAGGER/PIPE STRIPPER TO MONITOR CO-MORBID CONDITIONS LISTED ON THE PLAN OF CARE AND ANY NEW CONDITIONS THAT PRESENT THEMSELVES DURING THIS EPISODE TO IDENTIFY CHANGES AND INTERVENE TO MINIMIZE COMPLICATIONS.] Future Scheduled Test MEDICATION MANAGEMENT; RN/COAL BAGGER/PIPE STRIPPER TO REVIEW MEDICATIONS FOR INTERACTIONS, EFFECTIVENESS OF DRUG THERAPY, AND SIGNS/SYMPTOMS OF ADVERSE REACTIONS. MAY INSTRUCT AND REINFORCE MEDICATION TEACHING RELATED TO THE USE OF MEDICATIONS, DOSAGE, FREQUENCY, PURPOSE, SIDE EFFECTS, AND TO REPORT COMPLICATIONS. [code = MEDICATION MANAGEMENT; RN/COAL BAGGER/PIPE STRIPPER TO REVIEW MEDICATIONS FOR INTERACTIONS, EFFECTIVENESS OF DRUG THERAPY, AND SIGNS/SYMPTOMS OF ADVERSE REACTIONS. MAY INSTRUCT AND REINFORCE MEDICATION TEACHING RELATED TO THE USE OF MEDICATIONS, DOSAGE, FREQUENCY, PURPOSE, SIDE EFFECTS, AND TO REPORT COMPLICATIONS.] Future Scheduled Test RN/COAL BAGGER/PIPE STRIPPER TO PERFORM/TEACH INCISION CARE TO RIGHT ARM FLAP INCISIONS APPLY XEROFORM CHANGE DRESSING EVERY DAYS PT AND SPOUSE ABLE TO DO LEFT THIGH INCISION OPEN TO AIR WITH GLUE CLOSURE [code = RN/COAL BAGGER/PIPE STRIPPER TO PERFORM/TEACH INCISION CARE TO RIGHT ARM FLAP INCISIONS APPLY XEROFORM CHANGE DRESSING EVERY DAYS PT AND SPOUSE ABLE TO DO LEFT THIGH INCISION OPEN TO AIR WITH GLUE CLOSURE] Future Scheduled Test PAIN MANAG EMENT; RN TO ASSESS AND TEACH, PIPE STRIPPER/COAL BAGGER TO OBSERVE AND TEACH AND PROVIDE EDUCATION ON PAIN MANAGEMENT TECHNIQUES. [code = PAIN MANAGEMENT; RN TO ASSESS AND TEACH, PIPE STRIPPER/COAL BAGGER TO OBSERVE AND TEACH AND PROVIDE EDUCATION ON PAIN MANAGEMENT TECHNIQUES.] Future Scheduled Test FALL REDUC TION MANAGEMENT; RN TO ASSESS AND OBSERVE, COAL BAGGER/PIPE STRIPPER TO OBSERVE FALL RISK FACTORS AND EDUCATE PATIENT/CAREGIVER ON STRATEGIES TO MINIMIZE THE RISK OF FALLING. [code = FALL REDUCTION MANAGEMENT; RN TO ASSESS AND OBSERVE, COAL BAGGER/PIPE STRIPPER TO OBSERVE FALL RISK FACTORS AND EDUCATE [...] End Date/Time Encounter Type Admission Type Attending [email or web address] Care Department Encounter ID Discharge Date Discharge Status Discharge Condition Discharge Reason Percent Goals Met 2024-03-25 00:00:00 2024-04-09 00:00:00 Outpatient NEW ADMISSION LENODOMINGUEZMARIXA [facility]SON [facility] [id number] 2024-04-09 00:00:00 DISCHARGE TO HOME OR SELF CARE INDEPENDEN T IN THE HOME HH ONLY - PER CLIENT REQUEST 83.33
--- OUTSIDE RECORDS SUMMARY | 2024-05-07 12:16 | XMS_ITS | Patient Health Record ---
Author Organization [facility] Address [address] [place] [address] Care Team Providers Care Coremaker Floor Name Role Phone Kishor Sousa MD Primary Care Provider Rudi Ayoub [phone] ALLERGIES No Known Allergies REASON FOR REFERRAL [...] Problem Colon cancer screening (Z12.11) Active confirmed [id number] Problem Diverticulosis of large intestine without perforation or abscess without bleeding (K57.30) Active confirmed Diverticul ar disease of colon (338152925) PLAN OF TREATMENT Future Test Test Name Order Date COLONOSCOPY 03/10/2012 COLONOSCOPY 11/06/2022 Insurance Providers Payer Name Payer Address Payer Phone Subscriber Number Group Number Insured Name Patient Relationship to Insured Coverage Start Date Coverage End Date MEDICARE OF [place] [address] [place] [address] [id number] ZO MCKINNON Self - patient is the insured [employer] ATT[employer] CLAIMS [address] [place] [address] [phone] [id number] ZO MCKINNON Self - patient is the insured MEDICAL (GENERAL) HISTORY Medical History History ICD Code 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
--- OUTSIDE RECORDS SUMMARY | 2024-05-07 12:16 | XMS_ITS | Clinical Summary ---
Author Organization [facility] Address [address] [place] [address] Phone Care Team Providers Care Assistant Director Of Financial Aid Name Role Phone Kishor Sousa MD Primary Care Provider [phone] Encounters Date Type Department Care Team Description 02/24/2024 11:15 AM EST - 02/24/2024 11:59 PM EST Hospital Encounter [facility] [address] [address] Encounter for screening mammogram for breast cancer Discharge Disposition: Home or Self Care from Last 3 Months Social History Tobacco Use Types Packs/Day Years Used Date Smoking Tobacco: Never Assessed Sex and Gender Information Value Date Recorded Sex Assigned at Not on file Gender Identity Not on file Sexual Orientation Not on file Job Start Date Occupation Industry Not on file Not on file Not on file Obstetrics History Para Term AB IAB SAB Ectopic Multiple Livin g Live Births 3 Last Filed Vital Signs Vital Sign Reading Time Taken Comments Blood Pressure - - Pulse - - Temperature - - Respiratory Rate - - Oxygen Saturation - - Inhaled Oxygen Concentration - - Weight 68 kg (150 lb) 02/24/2024 11:29 AM EST Height 160 cm (5' 3 ) 02/24/2024 11:29 AM EST Body Mass Index 26.57 02/24/2024 11:29 AM EST Plan of Treatment Health Maintenance Due Date Last Done Comments Zoster Vaccines (2 of 2) 01/26/2020 12/01/2019 Pneumococcal Vaccine: 65+ Years (1 of 1 - PCV) 2022 Colorectal Cancer Screening: Colonoscopy 03/02/2022 Depression Screening 03/02/2022 Falls Risk Assessment 03/02/2022 Hepatitis C Screening 03/02/2022 Medicare Annual Wellness Visit 03/02/2022 Osteoporosis Screening (Bone Density Screening) 03/02/2022 Social Influencers of Health Screening 03/02/2022 Breast Cancer Screening 02/23/2026 02/24/20 24, 10/08/2021, 11/29/2019 DTaP,Tdap,and Td Vaccines (2 - Td or Tdap) 12/12/2031 12/11/2021 RSV Immunization Patients 60+ Years Old (1 - 1-dose 75+ series) 01/02/2032 COVID-19 Vaccine Completed 12/30/2023, 03/2021, 01/22/2021, Additional history exists Influenza Vaccine Completed 12/30/2023, , 02/23/2020 HIB Vaccines Aged Out No longer eligi ble based on patient's age to complete this topic HPV Vaccines Aged Out No longer eligi ble based on patient's age to complete this topic Hepatitis A Vaccines Aged Out No long er eligible based on patient's age to complete this topic Hepatitis B Vaccines Aged Out No long er eligible based on patient's age to complete this topic IPV Vaccines Aged Out No longer eligi ble based on patient's age to complete this topic MMR Vaccines Aged Out No longer eligi ble based on patient's age to complete this topic Meningococcal ACWY Vaccine Aged Out N o longer eligible based on patient's age to complete this topic RSV Immunization Patients Under 20 months Aged Out No longer eligible based on patient's age to complete this topic Varicella Vaccines Aged Out No longer eligible based on patient's age to complete this topic Procedures Procedure Name Priority Date/Time Associated Diagnosis Comments MG MAMMO DIGITAL SCREENING W ALAN BILAT Routine 02/24/2024 11:44 AM EST Encounter for screening mammogram for breast cancer from Last 3 Months Results * MG Mammo Digital Screening w Alan bilat (02/24/2024 11:44 AM EST) Anatomical Region Laterality Modality Breast Bilateral Mammography 02/24/2024 11:5 0 AM EST Impressions 02/24/2024 11:56 AM EST No mammographic evidence of malignancy. A negative mammogram in the presence of a clinically suspicious palpable abnormality does not preclude the possibility of malignancy or alter the indications for biopsy. PQRI CPT II 3342F Code 80196, 45379 PQRI 225 CPT II 7025F TISSUE DENSITY: There are scattered areas of fibroglandular density. (BI-RADS category B) IMPRESSION: Benign. BI-RADS CATEGORY: 2 - BENIGN RECOMMENDATION: Screening bilateral mammogram is recommended in 1 year. Mammo Location: [facility], [address] [place] [id number] -------- FINAL REPORT -------- Dictated By: Jonathan Viveros Dictated Date: 02/24/2024 11:50 ET Assigned Physician: Jonathan Viveros Reviewed and Electronically Signed By: Jonathan Viveros Signed Date: 02/24/2024 11:56 ET Workstation ID: [id number] Transcribed By: Self Edit Transcribed Date: 02/24/2024 11:50 ET Narrative 02/24/2024 11:56 AM EST CLINICAL: The patient is a 69 years Female presenting for routine screening mammography. COMPARISON: 10/08/2021, 11/29/2019, and 01/21/2017. ?? TECHNIQUE: Full-field digital mammography of the breasts bilaterally consisting of tomosynthesis in MLO and CC projection is performed in the Arcamed 2000-D unit. ??Computer aided detection utilizing the iCAD system was utilized. FINDINGS: The breasts are again seen to be composed of a combination of fatty and fibroglandular elements, without significant change as compared to prior studies. ??A 4 mm diameter nodular density posteriorly and superiorly in the right breast is stable as compared to prior studies and is again regarded as being benign, likely an intramammary lymph node. ??There is no suspicious cluster of microcalcifications, mass, or area of architectural distortion. There is no skin thickening or nipple retraction. Procedure Note Jonathan Viveros MD - 02/24/2024 CLINICAL: The patient is a 69 years Female presenting for routinescreening mammography. COMPARISON: 10/08/2021, 11/29/2019, and 01/21/2017. TECHNIQUE: Full-field digital mammography of the breasts bilaterallyconsisting of tomosynthesis in MLO and CC projection is performed in theArcamed 2000-D unit. Computer aided detection utilizing the iCADsystem was utilized. FINDINGS: The breasts are again seen to be composed of a combination offatty and fibroglandular elements, without significant change as comparedto prior studies. A 4 mm diameter nodular density posteriorly andsuperiorly in the right breast is stable as compared to prior studies andis again regarded as being benign, likely an intramammary lymph node.There is no suspicious cluster of microcalcifications, mass, or area ofarchitectural distortion. There is no skin thickening or nippleretraction. IMPRESSION: No mammographic evidence of malignancy. A negative mammogram in the presence of a clinically suspicious palpableabnormality does not preclude the possibility of malignancy or alter theindications for biopsy. PQRI CPT II 3342F Code 42253, 13095 PQRI 225 CPT II 7025F TISSUE DENSITY: There are scattered areas of fibroglandular density.(BI-RADS category B) IMPRESSION: Benign. BI-RADS CATEGORY: 2 - BENIGN RECOMMENDATION: Screening bilateral mammogram is recommended in 1 year. Mammo Location: [facility], [address] [place] [id number] -------- FINAL REPORT -------- Dictated By: Jonathan Viveros Dictated Date: 02/24/2024 11:50 ET Assigned Physician: Jonathan Viveros Reviewed and Electronically Signed By: Jonathan Viveros Signed Date: 02/24/2024 11:56 ET Workstation ID: [id number] Transcribed By: Self Edit Transcribed Date: 02/24/2024 11:50 ET Self Referral Sppl IMG BI PROCEDURES from Last 3 Months Care Teams Assistant Director Of Financial Aid Relationship Specialty Start Date End Date Kishor Sousa MD [address] [place] [address] [address] [facility] [place] [address] PCP - General Internal Medicine 02/23/24
[2024-05-07 12:47] LABS: Alanine Aminotransferase 15 U/L (0-31); Albumin Level 4.3 g/dL (3.5-5.0); Alkaline Phosphatase 66 U/L (39-117); Aspartate Amino Transferase 18 U/L (5-31); Bilirubin Direct < 0.2 mg/dL (0.0-0.5); Bilirubin Total 0.2 mg/dL (0.0-1.0); Blood Urea Nitrogen 9 mg/dL (9-16); Estimated Glomerular Filt Rate > 60; Total Protein 7.7 g/dL (6.5-8.0)
== END 2024-05-07 11:10 | disposition home or self-care (01) ==
LOC: HO.LABR 11:09
PROVIDERS: PCP Internal Medicine; Visit Provider Student in an Organized Health Care Education/Training Program
DX: M86.9 Osteomyelitis, unspecified (principal)
CPT/HCPCS: 36415; 80076; 82565; 84520

== ENCOUNTER 2024-05-17 12:07 | Outpatient (REF) | payer MEDICARE, SELFPAY ==
--- OUTSIDE RECORDS SUMMARY | 2024-05-17 12:12 | XMS_ITS | Patient Health Record ---
Author Organization [facility] Address [address] [place] [address] Care Team Providers Care Health Sciences Department Chair Name Role Phone Kishor Sousa MD Primary Care Provider Rudi Ayoub [phone] ALLERGIES No Known Allergies REASON FOR REFERRAL [...] Problem Colon cancer screening (Z12.11) Active confirmed 499052899 Problem Diverticulosis of large intestine without perforation or abscess without bleeding (K57.30) Active confirmed Diverticul ar disease of colon (763240656) PLAN OF TREATMENT Future Test Test Name Order Date COLONOSCOPY 03/10/2012 COLONOSCOPY 11/06/2022 Insurance Providers Payer Name Payer Address Payer Phone Subscriber Number Group Number Insured Name Patient Relationship to Insured Coverage Start Date Coverage End Date MEDICARE OF [place] [address] [place] [address] [id number] ZO MCKINNON Self - patient is the insured MEDEX ATTN CLAIMS [address] [place] [address] [phone] [id number] ZO MCKINNON Self - patient is the insured MEDICAL (GENERAL) HISTORY Medical History History ICD Code 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
--- OUTSIDE RECORDS SUMMARY | 2024-05-17 12:12 | XMS_ITS ---
Author Organization [facility] Address [address] [place] [address] Care Team Providers Care Color Shop Helper Name Role Phone Kishor Sousa MD Primary Care Provider Rudi Ayoub [phone] REASON FOR VISIT screening PROBLEMS Problem Type ICD Code Onset Dates Problem Status W/U Status Risk SNOMED Code Notes Problem Diverticulosis of large intestine without perforation or abscess without bleeding (K57.30) Active confirmed Diverticul ar disease of colon (937719661) Encounters Encounter Location Date Provider Diagnosis [facility] [place] [address], [place] [phone] 01/29/2023 Rudi Mills Encounter for scre ening [...]
--- OUTSIDE RECORDS SUMMARY | 2024-05-17 12:12 | XMS_ITS | Clinical Summary ---
Author Organization [facility] Address [address] [place] [address] Phone Care Team Providers Care Supervisor Steno Pool Name Role Phone Kishor Sousa MD Primary Care Provider [phone] Encounters Date Type Department Care Team Description 02/24/2024 11:15 AM EST - 02/24/2024 11:59 PM EST [facility] [address] [address] Encounter for screening mammogram for breast cancer Discharge Disposition: Home or Self Care from Last 3 Months Social History Tobacco Use Types Packs/Day Years Used Date Smoking Tobacco: Never Assessed Comments No Sex and Gender Information Value Date Recorded Sex Assigned at Not on file Legal Sex Female 5:34 PM EST Gender Identity Not on file Sexual Orientation Not on file Obstetrics History Para Term [...] Health Maintenance Due Date Last Done Comments Pneumococcal Vaccine: 50+ Years (1 of 1 - PCV) 2007 Zoster Vaccines (2 of 2) 01/26/2020 12/01/2019 Colorectal Cancer Screening: Colonoscopy 03/02/2022 Depression Screening [...] patient's age to complete this topic Meningococcal B Vacine Aged Out No lo nger eligible based on patient's age to complete [...] for biopsy. PQRI CPT II 3342F Code 14372, 21856 PQRI 225 CPT II 7025F TISSUE DENSITY: There are scattered areas of fibroglandular density. (BI-RADS category B) IMPRESSION: Benign. BI-RADS CATEGORY: 2 - BENIGN RECOMMENDATION: Screening bilateral mammogram is recommended in 1 year. Mammo Location: [facility], [address] [place] [address] -------- FINAL REPORT -------- Dictated By: Jonathan Viveros Dictated Date: 02/24/2024 11:50 ET Assigned Physician: Jonathan Viveros Reviewed and Electronically Signed By: Jonathan Viveros Signed Date: 02/24/2024 11:56 ET Workstation ID: [id number] Transcribed By: Self Edit Transcribed Date: 02/24/2024 11:50 ET Narrative 02/24/2024 11:56 AM EST CLINICAL: The patient is a 69 years Female presenting for routine screening mammography. COMPARISON: 10/08/2021, 11/29/2019, and 01/21/2017. ?? TECHNIQUE: Full-field digital mammography of the breasts bilaterally consisting of tomosynthesis in MLO and CC projection is performed in the [employer] 2000-D unit. ??Computer aided detection utilizing the [...] MLO and CC projection is performed in the[employer] 2000-D unit. Computer aided detection utilizing the Tong[employer]ystem was utilized. FINDINGS: The breasts are again [...] for biopsy. PQRI CPT II 3342F Code 71916, 67757 PQRI 225 CPT II 7025F TISSUE DENSITY: There are scattered areas of fibroglandular density.(BI-RADS category B) IMPRESSION: Benign. BI-RADS CATEGORY: 2 - BENIGN RECOMMENDATION: Screening bilateral mammogram is recommended in 1 year. Mammo Location: [facility], [address] [place] [address] -------- FINAL REPORT -------- Dictated By: Jonathan Viveros Dictated Date: 02/24/2024 11:50 ET Assigned Physician: Jonathan Viveros Reviewed and Electronically Signed By: Jonathan Viveros Signed Date: 02/24/2024 11:56 ET Workstation ID: [id number] Transcribed By: Self Edit Transcribed Date: 02/24/2024 11:50 ET us Self Referral Sppl IMG BI PROCEDURES Final Resul t from Last 3 Months Insurance MEDICARE [facility] Care Teams Supervisor Steno Pool Relationship Specialty Start Date End Date Kishor Sousa MD [address] [place] [address] [address] [facility] [place] [id number] PCP - General Internal Medicine 02/23/24
[2024-05-17 14:24] LABS: Erythrocyte Sedimentation Rate 11 MM/HR (0-20)
== END 2024-05-17 12:08 | disposition home or self-care (01) ==
LOC: HO.LAB 12:07
PROVIDERS: PCP Internal Medicine; Visit Provider Student in an Organized Health Care Education/Training Program
DX: M86.131 Other acute osteomyelitis, right radius and ulna (principal)
CPT/HCPCS: 36415; 85652; 86140

== ENCOUNTER 2024-06-10 11:02 | Outpatient (REF) | payer MEDICARE, SELFPAY ==
[2024-06-10 11:25] LABS: MANUAL DIFF FLAG NO
[2024-06-10 11:59] LABS: Basophils Percent Auto 0.7 % (0-2); Eosinophils Absolute Auto 0.1 X10*3/uL (0.0-0.4); Eosinophils Percent Auto 2.3 % (0-4); Hematocrit 40.5 % (37.0-47.0); Hemoglobin 13.3 g/dl (12.0-16.0); Imm Gran Abs Auto 0.09 X10*3/uL (0.00-0.03); Imm Gran Pct Auto 1.5 % (0.0-0.4); Mean Corpuscular HGB Conc 32.8 g/dl (31.0-35.0); Mean Corpuscular Hemoglobin 28.8 pg (27.0-33.0); Mean Corpuscular Volume 87.7 fL (80.0-98.0); Mean Platelet Volume 10.2 fL (9.4-12.3); Monocytes Absolute Auto 0.5 X10*3/uL (0.1-1.2); Monocytes Percent Auto 7.4 % (2-11); Neutrophils Absolute Auto 3.4 x10*3/uL (2.0-8.3); Neutrophils Percent Auto 56.1 % (45-73); Platelet Count 280 X10*3/uL (160-400); Red Blood Count 4.62 X10*6/uL (4.20-5.50); Red Cell Distribution Width 15.1 % (11.0-16.0); White Blood Count 6.1 X10*3/uL (4.8-10.8)
[2024-06-10 12:40] LABS: Albumin Level 4.2 g/dL (3.5-5.0); Alkaline Phosphatase 386 U/L (39-117); Anion Gap 12 (12-20); Aspartate Amino Transferase 138 U/L (5-31); Bilirubin Direct 0.4 mg/dL (0.0-0.5); Bilirubin Total 0.8 mg/dL (0.0-1.0); Blood Urea Nitrogen 7 mg/dL (9-16); Calcium 9.6 mg/dL (8.4-10.2); Carbon Dioxide 28 mmol/L (22-29); Chloride 104 mmol/L (96-108); Estimated Glomerular Filt Rate > 60; Glucose Random 92 mg/dL (60-115); Lipase 13 U/L (8-78); Potassium 3.9 mmol/L (3.3-5.1); Sodium 140 mmol/L (135-145); Total Protein 7.8 g/dL (6.5-8.0)
[2024-06-10 12:53] LABS: Alanine Aminotransferase 372 U/L (0-31)
--- OUTSIDE RECORDS SUMMARY | 2024-06-10 14:14 | XMS_ITS ---
Author Organization [facility] Address [address] [place] [address] Care Team Providers Care Turner In Name Role Phone Kishor Sousa MD Primary Care Provider Rudi Ayoub [phone] Results Component Value Reference Range Notes Lipase Reviewed date:06/10/2024 01:09:58 PM Interpretation: Performing Lab:[facility], [address] [place] [phone] Notes/Report: Lipase 13 8-78 U/L REASON FOR VISIT loose stools/pain in middle of rib cage Problems Problem Type SNOMED Code ICD Code Onset Dates Problem Status W/U Status Risk Notes Problem Epigastric pain (94050270) Epigastric abdominal pain (R10.13) Active confirmed Problem Diarrhea (79990352) Diarrhea (R19.7) Active confirmed Encounters Encounter Location Date Provider Diagnosis [facility] [address] [place] [address] 06/08/2024 Rudi Mills Epigastric abdominal pain R10.13 and Diarrhea R19.7 Assessments Encounter Date Diagnosis (ICD Code) Assessment Notes Treatment Notes Treatment Clinical Notes Section Notes 06/08/2024 Epigastric abdominal pain (ICD-10 - R10.13) 06/08/2024 Diarrhea (ICD-10 - R19.7) Plan Of Treatment Pending Test Test Name Order Date CHEM 7 PROFILE 06/08/2024 LIVER PROFILE 06/08/2024 CBC w DIFF 06/08/2024 STOOL WBC 06/08/2024 C DIFFICILE RFLX PCR 06/08/2024 US abdomen complete 06/08/2024 GI PANEL 06/08/2024 Progress Notes * ZO MCKINNONDOB:1955 (69 yo F)Acc No.[id number]:06/08/2024 Patient:ZO HOUGH :1955???Age:69 Y???Sex:Female Address:[facility] [address], [place], [address] Subjective: * Chief Complaints: * ???Loose stools/pain in midd le of rib cage * Medical History:? * Surgical History:? * Hospitalization/Major Diagno stic Procedure:? * Medications:? Objective: * Vitals:? * Physical Examination:? Assessment: * Assessment: 1.?Epigastric abdominal pain - R10.13 (Primary)???2.?Diarrhea - R19.7??? Plan: * Treatment: 2.?Diarrhea?LAB: CHEM 7 PROFILE ?LAB: LIVER PROFILE ?LAB: CBC w DIFF ?LAB: STOOL WBC ?LAB: C DIFFICILE RFLX PCR ?LAB: Lipase ?LAB: GI PANEL * Procedure Codes:? * true * Date:? Generated for Vikram tillman/Miguel Angel/Krunalitting on:?06/10/2024 02:13 PM EDT
--- OUTSIDE RECORDS SUMMARY | 2024-06-10 14:14 | XMS_ITS ---
Author Organization [facility] Address [address] [place] [address] Care Team Providers Care Food Production Manager Name Role Phone Kishor Sousa MD Primary Care Provider Rudi Ayoub [phone] REASON FOR VISIT screening Problems Problem Type SNOMED Code ICD Code Onset Dates Problem Status W/U Status Risk Notes Problem Diverticular disease of colon (795363398) Diverticulosis of large intestine without perforation or abscess without bleeding (K57.30) Active confirmed Encounters Encounter Location Date Provider Diagnosis [facility] [place] Out[place] [address] [place] [phone] 01/29/2023 Rudi Mills Encounter for scre ening colonoscopy Z12.11 ; Diverticulosis of large intestine without perforation or abscess without bleeding K57.30 and Other hemorrhoids K64.8 Assessments Encounter Date Diagnosis (ICD Code) Assessment Notes Treatment Notes Treatment Clinical Notes Section Notes 01/29/2023 Encounter for screening colonoscopy (ICD-10 - Z12.11) 01/29/2023 Diverticulosis of large intestine without perforation or abscess without bleeding (ICD-10 - K57.30) 01/29/2023 Other hemorrhoids (ICD-10 - K64.8) Plan Of Treatment No Information Progress Notes * ZO MCKINNONDOB:1955 (69 yo F)Acc No.[id number]:01/29/2023 COLON WITH MAC Patient:?PRATIBHAGININA Provider:?Rudi Mills MD :1955???Age:68 Y???Sex:Female D ate:01/29/2023 Address[address] [id number] Pcp:Kishor Sousa MD Subjective: * Chief Complaints: * ???1. Screening. * Medical History:? Objective: * Vitals:? Assessment: * Assessment: 1.?Encounter for screening c olonoscopy - Z12.11 (Primary)???2.?Diverticulosis of large intestine without perforation or abscess without bleeding - K57.30???3.?Other hemorrhoids - K64.8??? Plan: * Treatment: * Procedure Codes:?G0121 COLOR EC CNCR SCR;COLNSCPY NO HI RSK, 0529F INTRVL 3+YRS PTS CLNSCP DOCD, 0528F RCMND FLW-UP 10 YRS DOCD * * The named appointment provid er may or may not be the originator of this progress note, and it is not deemed complete until electronically signed by the appointment provider. Sign off status: Pending * Provider:?Rudi Mills MD Date:? 023 Generated for Vikram tillman/Miguel Angel/eTransmitting on:?06/10/2024 02:13 PM EDT
--- OUTSIDE RECORDS SUMMARY | 2024-06-10 14:14 | XMS_ITS | Patient Health Record ---
Author Organization [facility] Address [address] [place] [address] Care Team Providers Care Insurance Application Investigator Name Role Phone Kishor Sousa MD Primary Care Provider Rudi Ayoub [phone] Allergies No Known Allergies Results Component Value Reference Range Notes Lipase Reviewed date:06/10/2024 01:09:58 PM Interpretation: Performing Lab:[facility], [address] [place] [phone] Notes/Report: Lipase 13 8-78 U/L Complete Blood Count Auto Di ff Reviewed date:06/10/2024 01:08:20 PM Interpretation: Performing Lab:[facility], [address] [place] [phone] Notes/Report: White Blood Count 6.1 4.8-10.8 X10*3/uL Red Blood Count 4.62 4.20-5.50 X10*6/uL Hemoglobin 13.3 12.0-16.0 g/dl Hematocrit 40.5 37.0-47.0 % Mean Corpuscular Volume 87.7 80.0-98.0 fL Mean Corpuscular Hemoglobin 28.8 27.0-33.0 pg Mean Corpuscular HGB Conc 32.8 31.0-35.0 g/dl Red Cell Distribution Width 15.1 11.0-16.0 % Platelet Count 280 160-400 X10*3/uL Mean Platelet Volume 10.2 9.4-12.3 fL Neutrophils Percent Auto 56.1 45-73 % Imm Gran Pct Auto 1.5 0.0-0.4 % Lymphocytes Percent Auto 32.0 20-40 % Monocytes Percent Auto 7.4 2-11 % Eosinophils Percent Auto 2.3 0-4 % Basophils Percent Auto 0.7 0-2 % NRBC Pct Auto 0.0 0.0-0.2 /100WBC Neutrophils Absolute Auto 3.4 2.0-8.3 x10*3/u L Imm Gran Abs Auto 0.09 0.00-0.03 X10*3/uL Lymphocytes Absolute Auto 2.0 1.2-4.9 X10*3/u L Monocytes Absolute Auto 0.5 0.1-1.2 X10*3/uL Eosinophils Absolute Auto 0.1 0.0-0.4 X10*3/u L Basophils Absolute Auto 0.0 0.0-0.2 X10*3/uL NRBC Abs Auto 0.000 0.0-0.012 X10*3/uL Liver Panel (Not yet reviewe d by provider) Interpretation: Performing Lab:[facility], [address] [place] [phone] Notes/Report: Bilirubin Total 0.8 0.0-1.0 mg/dL Bilirubin Direct 0.4 0.0-0.5 mg/dL Aspartate Amino Transferase 138 5-31 U/L Alanine Aminotransferase 372 0-31 U/L Total Protein 7.8 6.5-8.0 g/dL Albumin Level 4.2 3.5-5.0 g/dL Alkaline Phosphatase 386 39-117 U/L Basic Metabolic Panel Reviewed date:06/10/2024 01:09:23 PM Interpretation: Performing Lab:[facility], [address] [place] [phone] Notes/Report: Sodium 140 135-145 mmol/L Potassium 3.9 3.3-5.1 mmol/L Chloride 104 96-108 mmol/L Carbon Dioxide 28 22-29 mmol/L Anion Gap 12 12-20 Blood Urea Nitrogen 7 9-16 mg/dL Creatinine 0.63 0.5-1.4 mg/dL Estimated Glomerular Filt Rate > 60 Chronic Kidney Disease: Estimated GFR < 60 mL/min/1.73m2 Severe Kidney Disease: Estimated GFR < 15 mL/min/1.73m2 Glucose Random 92 60-115 mg/dL Calcium 9.6 8.4-10.2 mg/dL Reason For Referral No Information Medications Medication SIG (Take, Route, Fr equency, Duration) Notes Start Date End Date Status Estradiol 1 MG 1 tablet Orally Once a day for 30 day(s) Active Immunizations Vaccine Route Administration Date Status Comme nts Influenza Unknown 02/19/2022 Administered Problems Problem Type SNOMED Code ICD Code Onset Dates Problem Status W/U Status Risk Notes Problem [id number] Colon cancer screening (Z12.11) Active confirmed Problem Epigastric pain (82648158) Epigastric abdominal pain (R10.13) Active confirmed Problem Diarrhea (45611324) Diarrhea (R19.7) Active confirmed Problem Diverticular disease of colon (992605256) Diverticulosis of large intestine without perforation or abscess without bleeding (K57.30) Active confirmed Encounters Encounter Location Date Provider Diagnosis [facility] [address] [place] [address] 06/08/2024 Rudi Mills Epigastric abdominal pain R10.13 [...] WBC 06/08/2024 C DIFFICILE RFLX PCR 06/08/2024 Liver Panel 06/10/2024 US abdomen complete 06/08/2024 GI PANEL 06/08/2024 Future Test Test Name Order Date COLONOSCOPY 03/10/2012 COLONOSCOPY 11/06/2022 Insurance Providers Payer Name Payer Address Payer Phone Subscriber Number Group Number Insured Name Patient Relationship to Insured Coverage Start Date Coverage End Date MEDICARE OF [place] [address] [place] [id number] ZO MCKINNON Self - patient is the insured MEDEX ATTN CLAIMS [address] [place] [address] [id number] ZO MCKINNON Self - patient is the insured Medical (General) History Medical History History ICD Code 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
--- OUTSIDE RECORDS SUMMARY | 2024-06-10 14:14 | XMS_ITS | Clinical Summary ---
Author Organization [facility] Address [address] [place] [address] Phone Care Team Providers Care Organisational Psychologist Name Role Phone Kishor Sousa MD Primary Care Provider [phone] Social History Tobacco Use Types Packs/Day Years [...] for breast cancer from Last 3 Months or Most Recently Relevant to Health Maintenance Results * MG Mammo Digital Screening w [...] for biopsy. PQRI CPT II 3342F Code 65099, 38011 PQRI 225 CPT II 7025F TISSUE DENSITY: There are scattered areas of fibroglandular density. (BI-RADS category B) IMPRESSION: Benign. BI-RADS CATEGORY: 2 - BENIGN RECOMMENDATION: Screening bilateral mammogram is recommended in 1 year. Mammo Location: [facility], [facility], [address] [place] [address] -------- FINAL REPORT -------- Dictated By: Jonathan Viveros Dictated Date: 02/24/2024 11:50 ET Assigned Physician: Jonathan Viveros Reviewed and Electronically Signed By: Jonathan Viveros Signed Date: 02/24/2024 11:56 ET Workstation ID: [id number] Transcribed By: Self Edit Transcribed Date: 02/24/2024 11:50 ET Narrative 02/24/2024 11:56 AM EST CLINICAL: The patient is a 69 years Female presenting for routine screening mammography. COMPARISON: 10/08/2021, 11/29/2019, and 01/21/2017. ?? TECHNIQUE: Full-field digital mammography of the breasts bilaterally consisting of tomosynthesis in MLO and CC projection is performed in the [employer] 2000-D unit. ??Computer aided detection utilizing the [...] MLO and CC projection is performed in the[employer] 2000-D unit. Computer aided detection utilizing the [...] for biopsy. PQRI CPT II 3342F Code 15908, 97798 PQRI 225 CPT II 7025F TISSUE DENSITY: There are scattered areas of fibroglandular density.(BI-RADS category B) IMPRESSION: Benign. BI-RADS CATEGORY: 2 - BENIGN RECOMMENDATION: Screening bilateral mammogram is recommended in 1 year. Mammo Location: [facility], [address] [place] [address] -------- FINAL REPORT -------- Dictated By: Jonathan Viveros Dictated Date: 02/24/2024 11:50 ET Assigned Physician: Jonathan Viveros Reviewed and Electronically Signed By: Jonathan Viveros Signed Date: 02/24/2024 11:56 ET Workstation ID: [id number] Transcribed By: Self Edit Transcribed Date: 02/24/2024 11:50 ET us Self Referral Sppl IMG BI PROCEDURES Final Resul t from Last 3 Months or Most Recently Relevant to Health Maintenance Insurance MEDICARE [facility] Care Teams Organisational Psychologist Relationship Specialty Start Date End Date Kishor Sousa MD [address] [place] [address] [address] [facility] [place] [address] PCP - General Internal Medicine 02/23/24
[2024-06-10 15:30] LABS: CDiff Gene PCR POSITIVE (Negative)
[2024-06-10 16:13] LABS: CDiff Toxin Positive (Negative)
[2024-06-10 16:14] LABS: CDIFF Internal ctrl Dots and bkg OK (V)
[2024-06-10 16:20] LABS: Leukocytes Stool Qualitative NEGATIVE (NEGATIVE)
== END 2024-06-10 11:03 | disposition home or self-care (01) ==
LOC: HO.LAB 11:02
PROVIDERS: PCP Internal Medicine; Visit Provider Internal Medicine
DX: R10.13 Epigastric pain (principal); R19.7 Diarrhea, unspecified
CPT/HCPCS: 36415; 80048; 80076; 83690; 85025; 87324; 87493; 89055

== ENCOUNTER 2024-06-15 11:12 | Outpatient (REF) | payer MEDICARE, SELFPAY ==
[2024-06-15 11:55] LABS: MANUAL DIFF FLAG NO
[2024-06-15 12:08] LABS: Basophils Percent Auto 0.7 % (0-2); Eosinophils Absolute Auto 0.1 X10*3/uL (0.0-0.4); Eosinophils Percent Auto 2.4 % (0-4); Hematocrit 39.8 % (37.0-47.0); Hemoglobin 12.8 g/dl (12.0-16.0); Imm Gran Abs Auto 0.12 X10*3/uL (0.00-0.03); Imm Gran Pct Auto 2.2 % (0.0-0.4); Mean Corpuscular HGB Conc 32.2 g/dl (31.0-35.0); Mean Corpuscular Volume 90.2 fL (80.0-98.0); Mean Platelet Volume 10.1 fL (9.4-12.3); Monocytes Absolute Auto 0.5 X10*3/uL (0.1-1.2); Monocytes Percent Auto 9.4 % (2-11); Neutrophils Absolute Auto 2.7 x10*3/uL (2.0-8.3); Neutrophils Percent Auto 49.3 % (45-73); Platelet Count 327 X10*3/uL (160-400); Red Blood Count 4.41 X10*6/uL (4.20-5.50); Red Cell Distribution Width 15.3 % (11.0-16.0); White Blood Count 5.5 X10*3/uL (4.8-10.8)
[2024-06-15 12:40] LABS: Anion Gap 14 (12-20)
[2024-06-15 12:43] LABS: Alanine Aminotransferase 194 U/L (0-31); Albumin Level 4.1 g/dL (3.5-5.0); Aspartate Amino Transferase 67 U/L (5-31); Bilirubin Direct 0.3 mg/dL (0.0-0.5); Bilirubin Total 0.5 mg/dL (0.0-1.0); Blood Urea Nitrogen 9 mg/dL (9-16); Calcium 9.8 mg/dL (8.4-10.2); Carbon Dioxide 27 mmol/L (22-29); Chloride 105 mmol/L (96-108); Estimated Glomerular Filt Rate > 60; Glucose Random 91 mg/dL (60-115); Lipase 14 U/L (8-78); Sodium 141 mmol/L (135-145); Total Protein 7.5 g/dL (6.5-8.0)
[2024-06-15 13:11] LABS: Alkaline Phosphatase 258 U/L (39-117)
== END 2024-06-15 11:13 | disposition home or self-care (01) ==
LOC: HO.LAB 11:12
PROVIDERS: PCP Internal Medicine; Visit Provider Internal Medicine
DX: R10.13 Epigastric pain (principal); R19.7 Diarrhea, unspecified
CPT/HCPCS: 36415; 80048; 80076; 83690; 85025

== ENCOUNTER 2024-06-17 11:07 | Outpatient (REF) | payer MEDICARE, SELFPAY ==
--- NOTE | ~2024-06-17 | US_ITS ---
CLINICAL HISTORY: EPIGASTRIC PAIN US abdomen complete Comparison: None Findings: The visualized pancreas is normal. The aorta and inferior vena cava are normal caliber. The appearance of the liver suggests fatty infiltration without focal lesion. There is no intrahepatic bile duct dilatation. The common duct is 3.3 mm in diameter. The gallbladder stone filled with shadowing distally limiting evaluation. There is no sonographic Ross sign. The main portal vein is antegrade. The right kidney is 10.8 cm in length. The left kidney is 10.7 cm in length. The spleen is normal. No ascites. IMPRESSION: 1. Cholelithiasis. 2. Hepatic steatosis. This document has been electronically signed by: Jonathan Clement MD on 06/18/2024 08:27:34
--- OUTSIDE RECORDS SUMMARY | 2024-06-17 13:12 | XMS_ITS ---
Author Organization [facility] Address [address] [place] [address] Care Team Providers Care Director Child Name Role Phone Kishor Sousa MD Primary Care Provider Rudi yAoub [phone] REASON FOR VISIT screening Problems Problem Type SNOMED Code ICD Code Onset Dates Problem Status W/U Status Risk Notes Problem Diverticular disease of colon (863332219) Diverticulosis of large intestine without perforation or abscess without bleeding (K57.30) Active confirmed Encounters Encounter Location Date Provider Diagnosis [facility] [place] [address] [place] [phone] 01/29/2023 Rudi Mills Encounter for scre ening [...] Notes * ZO MCKINNONDOB:1955 (69 yo F)Acc No.[id number]:01/29/2023 COLON WITH MAC Patient:?PRATIBHAGININA Provider:?Rudi Mills MD :1955???Age:68 Y???Sex:Female D ate:01/29/2023 Address:[address] [id number] Pcp:Kishor Sousa MD Subjective: * Chief Complaints: [...] Date:? 023 Generated for Vikram tillman/Miguel Angel/eTransmitting on:?06/17/2024 01:11 PM EDT
--- OUTSIDE RECORDS SUMMARY | 2024-06-17 13:12 | XMS_ITS ---
Author Organization [facility] Address [address] [place] [address] Care Team Providers Care Manager Applied Name Role Phone Kishor Sousa MD Primary Care Provider Rudi Ayoub [phone] Results Component Value Reference Range Notes Lipase Reviewed date:06/10/2024 01:09:58 PM Interpretation: Performing Lab:[facility], [address] [place] [phone] Notes/Report: Lipase 13 8-78 U/L REASON FOR VISIT loose stools/pain in middle of rib cage Problems Problem Type SNOMED Code ICD Code Onset Dates Problem Status W/U Status Risk Notes Problem Epigastric pain (85498654) Epigastric abdominal pain (R10.13) Active confirmed Problem Diarrhea (09072724) Diarrhea (R19.7) Active confirmed Encounters Encounter Location Date Provider Diagnosis [facility] [address] [place] [address] 06/08/2024 Rudi Mills Epigastric abdominal pain R10.13 [...] Notes * ZO MCKINNONDOB:1955 (69 yo F)Acc No.[id number]:06/08/2024 Patient:ZO HOUGH :1955???Age:69 Y???Sex:Female Address:[facility] [address], [place], [address] Subjective: * Chief Complaints: * ???Loose stools/pain [...] true * Date:? Generated for Vikram tillman/Miguel Angel/Aparnasmitting on:?06/17/2024 01:11 PM EDT
--- OUTSIDE RECORDS SUMMARY | 2024-06-17 13:12 | XMS_ITS ---
Author Organization [facility] Address [address] [place] [address] Care Team Providers Care Integration Engineer Name Role Phone Kishor Sousa MD Primary Care Provider Rudi Ayoub [phone] REASON FOR VISIT results Medications Medication SIG (Take, Route, Fr equency, Duration) Notes Start Date End Date Status Vancomycin HCl 250 MG 1 Orally every 6 h rs for 10 days 06/10/2024 Active Encounters Encounter Location Date Provider Diagnosis [facility] [address] [place] [address] 06/10/2024 Rudi Mills Elevated liver function tests R94.5 Assessments Encounter Date Diagnosis (ICD Code) Assessment Notes Treatment Notes Treatment Clinical Notes Section Notes 06/10/2024 Elevated liver function tests (ICD-10 - R94.5) Plan Of Treatment Medication Medication Name Sig Start Date Stop Date Notes Vancomycin HCl 250 MG 1 Orally every 6 hrs for 10 days Pending Test Test Name Order Date LIVER PROFILE 06/10/2024 Progress Notes * GINI MCKINNONMARGAUXDOB:1955 (69 yo F)Acc No.[id number]:06/10/2024 Patient:?ZO MCKINNON :1955???Age:69 Y???Sex:Female Address:[address], [place], [address] * Refills? Start Vancomycin HCl Capsule, 250 MG, Orally, 40, 1, every 6 hrs, 10 days, Refills=0 Subjective: * Chief Complaints: * ???Results * Medical History:? * Surgical History:? * Hospitalization/Major Diagno stic Procedure:? * Medications:? Objective: * Vitals:? * Physical Examination:? Assessment: * Assessment: 1.?Elevated liver function t ests - R94.5 (Primary)??? Plan: * Treatment: 2.?Others? Start Vancomycin HCl Capsule, 250 MG, 1, Orally, every 6 hrs, 10 days, 40, Refills 0.?? * Procedure Codes:? * * Date:?
--- OUTSIDE RECORDS SUMMARY | 2024-06-17 13:12 | XMS_ITS | Patient Health Record ---
Author Organization [facility] Address [address] [place] [address] Care Team Providers Care Php Architect Name Role Phone Kishor Sousa MD Primary Care Provider Rudi Ayoub [phone] Allergies No Known Allergies Results Component Value Reference Range Notes Lipase Reviewed date:06/10/2024 01:09:58 PM Interpretation: Performing Lab:[facility], [address] [place] [phone] Notes/Report: Lipase 13 8-78 U/L Complete Blood Count Auto Di ff Reviewed date:06/10/2024 01:08:20 PM Interpretation: Performing Lab:[facility], [address] [place] [phone] Notes/Report: White Blood Count 6.1 4.8-10.8 X10*3/uL [...] X10*3/uL NRBC Abs Auto 0.000 0.0-0.012 X10*3/uL Leukocytes Stool Qualitative Reviewed date:06/10/2024 04:47:29 PM Interpretation: Performing Lab:[address] [phone] Notes/Report: Leukocytes Stool Qualitative NEGATIVE NEGATIVE Liver Panel Reviewed date:06/15/2024 01:32:31 PM Interpretation: Performing Lab:[address] [phone] Notes/Report: Bilirubin Total 0.8 0.0-1.0 mg/dL Bilirubin Direct 0.4 0.0-0.5 mg/dL Aspartate Amino Transferase 138 5-31 U/L Alanine Aminotransferase 372 0-31 U/L Total Protein 7.8 6.5-8.0 g/dL Albumin Level 4.2 3.5-5.0 g/dL Alkaline Phosphatase 386 39-117 U/L Basic Metabolic Panel Reviewed date:06/10/2024 01:09:23 PM Interpretation: Performing Lab:[address] [phone] Notes/Report: Sodium 140 135-145 mmol/L Potassium 3.9 3.3-5.1 mmol/L Chloride 104 96-108 mmol/L Carbon Dioxide 28 22-29 mmol/L Anion Gap 12 12-20 Blood Urea Nitrogen 7 9-16 mg/dL Creatinine 0.63 0.5-1.4 mg/dL Estimated Glomerular Filt Rate > 60 Chronic Kidney Disease: Estimated GFR < 60 mL/min/1.73m2 Severe Kidney Disease: Estimated GFR < 15 mL/min/1.73m2 Glucose Random 92 60-115 mg/dL Calcium 9.6 8.4-10.2 mg/dL Cancelled Serology Reviewed date:06/10/2024 04:44:38 PM Interpretation: Performing Lab:[facility], [address] [place] [phone] Notes/Report: Cancelled Serology SEE NOTE THE FOLLOWING TESTS WERE CANCELLED: GI PANEL REASON: INCORRECT CONTAINER, NEEDS TO BE IN PRESERVATIVE WITH ORANGE CAP CDiff Gene PCR Reviewed date:06/10/2024 06:34:34 PM Interpretation: Performing Lab:[facility], [address] [place] [phone] Notes/Report: CDiff Gene PCR POSITIVE Negative Additional C. difficile toxin testing to be performed. CDiff Toxin Reviewed date:06/10/2024 06:34:26 PM Interpretation: Performing Lab:[facility], [address] [place] [phone] Notes/Report: CDiff Toxin Positive Negative Results of C DIFF called to and read back by AYDEN Hernández on 06/10/24 at 1611 by RENETTA. Results of C DIFF called to and read back by INFECTION CTL on 06/10/24 at 1613 by RENETTA. CDIFF Interpretation SEE NOTE Likely C. Difficile infection. Continue treatment and contact precautions. Do not send follow-up C. difficile test (i.e. as a test of cure). Critical C DIFF called to and read back by AYDEN Hernández AND [facility] CONTROL on 06/10/24 at 1613 by RENETTA. Complete Blood Count Auto Di ff Reviewed date:06/15/2024 01:31:57 PM Interpretation: Performing Lab:[facility], [address] [place] [phone] Notes/Report: White Blood Count 5.5 4.8-10.8 X10*3/uL Red Blood Count 4.41 4.20-5.50 X10*6/uL Hemoglobin 12.8 12.0-16.0 g/dl Hematocrit 39.8 37.0-47.0 % Mean Corpuscular Volume 90.2 80.0-98.0 fL Mean Corpuscular Hemoglobin 29.0 27.0-33.0 pg Mean Corpuscular HGB Conc 32.2 31.0-35.0 g/dl Red Cell Distribution Width 15.3 11.0-16.0 % Platelet Count 327 160-400 X10*3/uL Mean Platelet Volume 10.1 9.4-12.3 fL Neutrophils Percent Auto 49.3 45-73 % Imm Gran Pct Auto 2.2 0.0-0.4 % Lymphocytes Percent Auto 36.0 20-40 % Monocytes Percent Auto 9.4 2-11 % Eosinophils Percent Auto 2.4 0-4 % Basophils Percent Auto 0.7 0-2 % NRBC Pct Auto 0.0 0.0-0.2 /100WBC Neutrophils Absolute Auto 2.7 2.0-8.3 x10*3/u L Imm Gran Abs Auto 0.12 0.00-0.03 X10*3/uL Lymphocytes Absolute Auto 2.0 1.2-4.9 X10*3/u L Monocytes Absolute Auto 0.5 0.1-1.2 X10*3/uL Eosinophils Absolute Auto 0.1 0.0-0.4 X10*3/u L Basophils Absolute Auto 0.0 0.0-0.2 X10*3/uL NRBC Abs Auto 0.000 0.0-0.012 X10*3/uL Liver Panel (Not yet reviewe d by provider) Interpretation: Performing Lab:[address] [phone] Notes/Report: Bilirubin Total 0.5 0.0-1.0 mg/dL Bilirubin Direct 0.3 0.0-0.5 mg/dL Aspartate Amino Transferase 67 5-31 U/L Alanine Aminotransferase 194 0-31 U/L Total Protein 7.5 6.5-8.0 g/dL Albumin Level 4.1 3.5-5.0 g/dL Alkaline Phosphatase 258 39-117 U/L Basic Metabolic Panel Reviewed date:06/15/2024 01:31:29 PM Interpretation: Performing Lab:[address] [phone] Notes/Report: Sodium 141 135-145 mmol/L Potassium 5.0 3.3-5.1 mmol/L Chloride 105 96-108 mmol/L Carbon Dioxide 27 22-29 mmol/L Anion Gap 14 12-20 Blood Urea Nitrogen 9 9-16 mg/dL Creatinine 0.66 0.5-1.4 mg/dL Estimated Glomerular Filt Rate > 60 Chronic Kidney Disease: Estimated GFR < 60 mL/min/1.73m2 Severe Kidney Disease: Estimated GFR < 15 mL/min/1.73m2 Glucose Random 91 60-115 mg/dL Calcium 9.8 8.4-10.2 mg/dL Lipase Reviewed date:06/15/2024 01:30:56 PM Interpretation: Performing Lab:[facility], [address] [place] [phone] Notes/Report: Lipase 14 8-78 U/L Reason For Referral No Information Medications Medication SIG (Take, Route, Fr equency, Duration) Notes Start Date End Date Status Estradiol 1 MG 1 tablet Orally Once a day for 30 day(s) Active Vancomycin HCl 250 MG 1 Orally every 6 h rs for 10 days 06/10/2024 Active Immunizations Vaccine Route Administration Date Status Comme nts Influenza Unknown 02/19/2022 Administered Problems Problem Type SNOMED Code ICD Code Onset Dates Problem Status W/U Status Risk Notes Problem 445583484 Colon cancer screening (Z12.11) Active confirmed Problem Epigastric pain (66674676) Epigastric abdominal pain (R10.13) Active confirmed Problem Diarrhea (01976584) Diarrhea (R19.7) Active confirmed Problem Diverticular disease of colon (805345314) Diverticulosis of large intestine without perforation or abscess without bleeding (K57.30) Active confirmed Encounters Encounter Location Date Provider Diagnosis [facility] [address] [place] [phone] 06/10/2024 Rudi Mills Elevated liver function tests R94.5 [facility] [address] [place] [phone] 06/08/2024 Rudi Mills Epigastric abdominal pain R10.13 and Diarrhea R19.7 Assessments Encounter Date Diagnosis (ICD Code) Assessment Notes Treatment Notes Treatment Clinical Notes Section Notes 06/10/2024 Elevated liver function tests (ICD-10 - R94.5) 06/08/2024 Epigastric abdominal pain (ICD-10 - R10.13) 06/08/2024 Diarrhea (ICD-10 - R19.7) Plan Of Treatment Pending Test Test Name Order Date CHEM 7 PROFILE 06/08/2024 LIVER PROFILE 06/10/2024 LIVER PROFILE 06/08/2024 CBC w DIFF 06/08/2024 STOOL WBC 06/08/2024 C DIFFICILE RFLX PCR 06/08/2024 Liver Panel 06/15/2024 US abdomen complete 06/08/2024 GI PANEL 06/08/2024 Future Test Test Name Order Date COLONOSCOPY 03/10/2012 COLONOSCOPY 11/06/2022 Insurance Providers Payer Name Payer Address Payer Phone Subscriber Number Group Number Insured Name Patient Relationship to Insured Coverage Start Date Coverage End Date MEDICARE OF [place] [address] [place] [id number] ZO MCKINNON Self - patient is the insured [employer] ATTN CLAIMS [address] [place] [address] [id number] ZO MCKINNON Self - patient is the insured Medical (General) History Medical History History ICD Code 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
--- OUTSIDE RECORDS SUMMARY | 2024-06-17 13:12 | XMS_ITS | Clinical Summary ---
Author Organization [facility] Address [address] [place] [address] Phone Care Team Providers Care Clinical Laboratory Manager Name Role Phone Kishor Sousa MD Primary Care Provider [phone] Social History Tobacco Use Types Packs/Day Years [...] for biopsy. PQRI CPT II 3342F Code 51453, 82954 PQRI 225 CPT II 7025F TISSUE DENSITY: There are scattered areas of fibroglandular density. (BI-RADS category B) IMPRESSION: Benign. BI-RADS CATEGORY: 2 - BENIGN RECOMMENDATION: Screening bilateral mammogram is recommended in 1 year. Mammo Location: [facility], [address] [place] [id number] -------- FINAL REPORT -------- Dictated By: Jonathan Viveros Dictated Date: 02/24/2024 11:50 ET Assigned Physician: Jonathan Viveros Reviewed and Electronically Signed By: Jonathan Viveros Signed Date: 02/24/2024 11:56 ET Workstation ID: [id number] Transcribed By: Self Edit Transcribed Date: 02/24/2024 11:50 ET Narrative 02/24/2024 11:56 AM EST CLINICAL: The patient is a 69 years Female presenting for routine screening mammography. COMPARISON: 10/08/2021, 11/29/2019, and 01/21/2017. ?? TECHNIQUE: Full-field digital mammography of the breasts bilaterally consisting of tomosynthesis in MLO and CC projection is performed in the [employer] 2000-D unit. ??Computer aided detection utilizing the [...] MLO and CC projection is performed in the[employer] 2000-D unit. Computer aided detection utilizing the [...] for biopsy. PQRI CPT II 3342F Code 75886, 42574 PQRI 225 CPT II 7025F TISSUE DENSITY: There are scattered areas of fibroglandular density.(BI-RADS category B) IMPRESSION: Benign. BI-RADS CATEGORY: 2 - BENIGN RECOMMENDATION: Screening bilateral mammogram is recommended in 1 year. Mammo Location: [facility], [address] [place] [address] -------- FINAL REPORT -------- Dictated By: Jonathan Viveros Dictated Date: 02/24/2024 11:50 ET Assigned Physician: Jonathan Viveros Reviewed and Electronically Signed By: Jonathan Viveros Signed Date: 02/24/2024 11:56 ET Workstation ID: [id number] Transcribed By: Self Edit Transcribed Date: 02/24/2024 11:50 ET us Self Referral Sppl IMG BI PROCEDURES Final Resul t from Last 3 Months or Most Recently Relevant to Health Maintenance Insurance MEDICARE [facility] Care Teams Clinical Laboratory Manager Relationship Specialty Start Date End Date Kishor Sousa MD [address] [place] [address] [address] [facility] [place] [address] PCP - General Internal Medicine 02/23/24
== END 2024-06-17 11:08 | disposition home or self-care (01) ==
LOC: HO.HMGCX 11:07
PROVIDERS: PCP Internal Medicine; Visit Provider Internal Medicine
DX: R10.13 Epigastric pain (principal)
CPT/HCPCS: 76700

== ENCOUNTER → 2024-06-17 11:15 | Outpatient (BNV) | payer MEDICARE, SELFPAY | PROVIDERS: PCP Internal Medicine; Visit Provider Specialist | DX: K80.20 Calculus of gallbladder without cholecystitis without obstruction (principal); K76.0 Fatty (change of) liver, not elsewhere classified | CPT/HCPCS: 76700 ==